=== PATIENT | male | born 1955 | race Caucasian/White ===

== ENCOUNTER 2017-04-06 12:18 | Inpatient (IN) | payer MEDICAID ==
[~2017-04-06] VITALS: Ht 177.8 cm; Wt 74.4 kg
[2017-04-06] VITALS (13 sets, daily range): BP systolic 144–188; BP diastolic 65–82
[~2017-04-06 12:18] MED LIST: NS Irrig 1000ml ONE; Sterile Water Irrig 1000ml IRRIG ONE
[2017-04-06] MEDS ORDERED: Vancomycin 1.5gm/D5W 250ml 250 ML IVPB ONE (13:30)
--- NOTE | 2017-04-06 13:31 | Emergency Room Report ---
History of Present Illness General Chief Complaint: Lower Extremity Injury Source: Patient (STAN BERNSTEIN M.D.) Present Illness HPI 61-year-old male, walk-in with "a few months" of worsening pain smell from left foot after accidentally dropping a motor on left shoe. Patient been caring for foot with home remedies, has not seen primary care doctor for this. Patient went to urgent care clinic and was sent promptly to the ER today. Denies history of diabetes, possibly has history of high blood pressure. Denies fevers chills or feeling of unwell Per son patient has been walking with a limp (STAN BERNSTEIN M.D.) Allergies: Coded Allergies: No Known Allergies (Unverified , 04/06/17) Patient History Past Medical History: HTN Past Surgical History: none Pertinent Family History: none Social History: Denies: smoking, alcohol use, drug use Immunizations: UTD Reviewed Nursing Documentation: PMH: Agreed, PSxH: Agreed (STAN BERNSTEIN M.D.) Nursing Documentation-PMH Past Medical History: No History, Except For Hx Hypertension: Yes (STAN BERNSTEIN M.D.) Review of Systems All Other Systems: negative except mentioned in HPI (STAN BERNSTEIN M.D.) Physical Exam Vital Signs Date Time Temp Pulse Resp B/P (MAP) Pulse Ox O2 Delivery O2 Flow Rate FiO2 04/06/17 12:40 98.4 120 18 182/82 98 Room Air Sp02 EP Interpretation: reviewed, normal General Appearance: normal inspection, well appearing, no apparent distress, alert, GCS 15, non-toxic Head: normocephalic, atraumatic Eyes: bilateral eye PERRL, bilateral eye EOMI ENT: normal ENT inspection, hearing grossly normal, normal voice Neck: normal inspection, full range of motion, supple, no bony tend Respiratory: normal inspection, lungs clear, normal breath sounds, no respiratory distress, no retraction, no wheezing Cardiovascular #1: regular rate, rhythm, no edema Gastrointestinal: normal inspection, normal bowel sounds, non tender, soft, no guarding, no hernia Genitourinary: no CVA tenderness Musculoskeletal: normal inspection, back normal, normal range of motion, Binh' s Sign negative, other - Left foot: Large area of black necrotic-looking tissue to bottom of his left big toe and also including bottom of left . Decreased sensation to bottom of discoloration of foot. Discoloration of nails. 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 nml as tested, speech normal Psychiatric: normal inspection, judgement/insight normal, mood/affect normal Skin: normal inspection, normal color, no rash (STAN BERNSTEIN M.D.) Medical Decision Making Diagnostic Impression: Primary Impression: Ulcer of foot with necrosis of muscle Additional Impressions: Osteomyelitis of left foot Necrotizing fasciitis ER Course Necrotic-looking infection of left foot, possible osteomyelitis, possible necrotizing fasciitis Broad-spectrum antibiotics including Unasyn and vancomycin Blood cultures pending Needs admission for IV antibiotics, possible podiatry and/or general surgery consult for possible debridement or amputation for worst-case scenario signed out to Dr. Hannah 2 PM to followup labs, imaging endorsement for admission (STAN BERNSTEIN M.D.) ER Course received signout - 61-year-old male, trauma few months ago, 2-3 months of necrotic left toe and foul-smelling odor. Discussed with radiologist, concern for osteomyelitis as well as necrotizing fasciitis Patient received Unasyn and vancomycin Clindamycin added Discussed with surgery who is aware of patient Dr Zabala evaluated patient will be admitted to OR (Stephanie Hannah M.D.) Last Vital Signs Date Time Temp Pulse Resp B/P (MAP) Pulse Ox O2 Delivery O2 Flow Rate FiO2 04/06/17 12:40 98.4 120 18 182/82 98 Room Air Status: improved (STAN BERNSTEIN M.D.) Disposition: ADMITTED INPATIENT STAN BERNSTEIN M.D. Apr 06, 2017 13:31 Stephanie Hannah M.D. Apr 06, 2017 14:52
[2017-04-06] MEDS ORDERED: Unasyn 3gm Inj ONE ×2 (13:44→13:57)
[2017-04-06] MEDS: Ampicillin/Sulbactam Sod 3 GM in NS 110 ML IV SCH ×2 (14:06→19:30)
[2017-04-06 14:21] LABS: BASOPHILS % (AUTO) 1.2 % (0.0-2.0); EOSINOPHILS % (AUTO) 0.3 % (0.0-3.0); LYMPHOCYTES % (AUTO) 14.5 % (20.0-45.0); MEAN CORPUSCULAR HEMOGLOBIN 27.8 PG (27.0-31.0); MEAN CORPUSCULAR HGB CONC 32.3 G/DL (32.0-36.0); MEAN CORPUSCULAR VOLUME 86 FL (80-99); MEAN PLATELET VOLUME 6.7 FL (6.5-10.1); MONOCYTES % (AUTO) 6.1 % (1.0-10.0); PLATELET COUNT 496 K/UL (150-450); RED BLOOD COUNT 4.57 M/UL (4.70-6.10); WHITE BLOOD COUNT 16.1 K/UL (4.8-10.8)
[2017-04-06 14:25] LABS: PROTHROMBIN TIME 10.5 SEC (9.30-11.50)
[2017-04-06 14:36] LABS: ANION GAP 12 mmol/L (5-15); CALCIUM 9.4 MG/DL (8.5-10.1); CARBON DIOXIDE 26 MMOL/L (21-32); CHLORIDE 94 MMOL/L (98-107); CREATININE 0.9 MG/DL (0.55-1.30); GLOMERULAR FILTRATION RATE > 60 mL/min (>60); POTASSIUM 4.4 MMOL/L (3.5-5.1); SODIUM 131 MMOL/L (136-145)
[2017-04-06] MEDS ORDERED: Clindamycin 600mg 50 ML IVPB ONE (14:45)
[2017-04-06 14:49] LABS: ALANINE AMINOTRANSFERASE 26 U/L (12-78); ALBUMIN/GLOBULIN RATIO 0.4 (1.0-2.7); ASPARTATE AMINO TRANSFERASE 20 U/L (15-37); CKMB 1.2 NG/ML (0.0-3.6); TOTAL PROTEIN 8.1 G/DL (6.4-8.2)
--- NOTE | 2017-04-06 15:59 | Pre-Procedure Note/Attestation ---
Pre-Procedure Note/Attestation Complete Prior to Procedure Planned Procedure: left Procedure Narrative: left foot debridement, possible ray amputation, possible mid foot amputation Attestation I attest that I discussed the nature of the procedure; its benefits; risks and complications; and alternatives (and the risks and benefits of such alternatives ), prior to the procedure, with the patient (or the patient's legal field representative/health education). I attest that, if there was a reasonable possibility of needing a blood transfusion, the patient (or the patient's legal field representative/health education) was given the [facility] standardized written summary, pursuant to the Emile Analy Blood Safety Act ([place] Health and Safety Code # 1645, as amended). I attest that I re-evaluated the patient just prior to the surgery and that there has been no change in the patient's H&P, except as documented below: Virgilio Zabala Apr 06, 2017 15:59
--- NOTE | 2017-04-06 16:11 | Consultation ---
History of Present Illness General Date patient seen: Apr 06, 2017 Chief Complaint: Lower Extremity Injury Present Illness HPI 61 year old male presented to ED with worsening left foot pain with difficulty ambulating. As per patient, he had an injury 2 months ago at work where an engine fell onto his foot. Since that injury he has had pain in left foot and few weeks ago noted worsening area of necrosis. He thought wound would improve and has gone without medical evaluation since that time. In the last two week he has noted worsening pain, foul odor, discharge, and drainage from areas of wounds in left foot. As he began to have difficulty ambulating and pain worsened he decided to come to ED today for evaluation. Denies sensation in parts of the left foot but states there is a deep pain. Labs performed and demonstrated leukocytosis 16k, lactate 1.4. Patient low grade fevers and tachycardic. On exam demonstrates wet gangrene of left distal foot including great toe with purulent discharge and extensive necrosis. Allergies: Coded Allergies: No Known Allergies (Unverified , 04/06/17) Patient History History Provided By: Patient Healthcare decision maker Resuscitation status Advanced Directive on File Past Medical/Surgical History Past Medical/Surgical History: (1) Wet gangrene (2) Necrotizing fasciitis (3) Osteomyelitis of left foot (4) Ulcer of foot with necrosis of muscle Review of Systems Constitutional: Denies: no symptoms, see HPI, chills, sweats, fever, malaise, weakness, other Eye: Denies: no symptoms, see HPI, eye pain, blurred vision, tearing, double vision, nose pain, nose congestion, acuity changes, discharge, other ENT: Denies: no symptoms, see HPI, ear pain, ear discharge, nose pain, nose congestion, throat pain, throat swelling, mouth pain, hearing loss, nasal discharge, other Respiratory: Denies: no symptoms, see HPI, cough, orthopnea, shortness of breath, stridor, wheezing, RIVERA, sputum, other Cardiovascular: Denies: no symptoms, see HPI, chest pain, edema, palpitations, syncope, PND, other Gastrointestinal: Denies: no symptoms, see HPI, abdominal pain, constipation, diarrhea, nausea, vomiting, melena, hematemesis, other Genitourinary: Denies: no symptoms, see HPI, discharge, dysuria, frequency, hematuria, pain, retention, incontinence, urgency, vag bleed/dc, other Musculoskeletal: Denies: no symptoms, see HPI, back pain, gout, joint pain, joint swelling, muscle pain, muscle stiffness, other Skin: Denies: no symptoms, see HPI, rash, change in color, change in hair/nails , dryness, lesions, other Psychiatric: Denies: no symptoms, see HPI, prior hx, anxiety, depressed feelings, emotional problems, SI, HI, hallucinations, other Neurological: Denies: no symptoms, see HPI, headache, numbness, paresthesia, seizure, tingling, tremors, focal weakness, syncope, dizziness, other Endocrine: Denies: no symptoms, see HPI, excessive sweating, flushing, intolerance to temperature, increased thirst, increased urine, unexplained weight loss, other Hematologic/Lymphatic: Denies: no symptoms, see HPI, anemia, blood clots, easy bleeding, easy bruising, swollen glands, diathesis, other All Other Systems: negative except mentioned in HPI Physical Exam General Appearance: WD/WN, no apparent distress, alert Lines, tubes and drains: peripheral HEENT: mucous membranes moist, PERRL Neck: normal inspection Respiratory/Chest: lungs clear, normal breath sounds, no respiratory distress, no accessory muscle use Cardiovascular/Chest: normal peripheral pulses, normal rate, regular rhythm Abdomen: normal bowel sounds, non tender, soft, no organomegaly, no mass Extremities: other - left distal foot with extensive wet gangene, necrotic great toe necrosis, purulent discharge, erthema, edema, tender proximally. good pulses on right lower extremity and proximally on left lower extremity. 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 grossly normal, alert, oriented x 3, responsive Last 24 Hour Vital Signs Date Time Temp Pulse Resp B/P (MAP) Pulse Ox O2 Delivery O2 Flow Rate FiO2 04/06/17 15:00 91 19 148/65 97 Room Air 04/06/17 12:40 98.4 120 18 182/82 98 Room Air Intake and Output 04/06/17 04/07/17 19:00 07:00 Intake Total 110 ml Balance 110 ml Intake Oral 0 ml IV Total 110 ml Laboratory Tests Test 04/06/17 13:55 White Blood Count 16.1 K/UL (4.8-10.8) H Red Blood Count 4.57 M/UL (4.70-6.10) L Hemoglobin 12.7 G/DL (14.2-18.0) L Hematocrit 39.3 % (42.0-52.0) L Mean Corpuscular Volume 86 FL (80-99) Mean Corpuscular Hemoglobin 27.8 PG (27.0-31.0) Mean Corpuscular Hemoglobin Concent 32.3 G/DL (32.0-36.0) Red Cell Distribution Width 12.0 % (11.6-14.8) Platelet Count 496 K/UL (150-450) H Mean Platelet Volume 6.7 FL (6.5-10.1) Neutrophils (%) (Auto) 78.0 % (45.0-75.0) H Lymphocytes (%) (Auto) 14.5 % (20.0-45.0) L Monocytes (%) (Auto) 6.1 % (1.0-10.0) Eosinophils (%) (Auto) 0.3 % (0.0-3.0) Basophils (%) (Auto) 1.2 % (0.0-2.0) Prothrombin Time 10.5 SEC (9.30-11.50) Prothromb Time International Ratio 1.0 (0.9-1.1) Sodium Level 131 MMOL/L (136-145) L Potassium Level 4.4 MMOL/L (3.5-5.1) Chloride Level 94 MMOL/L (98-107) L Carbon Dioxide Level 26 MMOL/L (21-32) Anion Gap 12 mmol/L (5-15) Blood Urea Nitrogen 16 mg/dL (7-18) Creatinine 0.9 MG/DL (0.55-1.30) Estimat Glomerular Filtration Rate > 60 mL/min (>60) Glucose Level 360 MG/DL (74-106) H Lactic Acid Level 1.30 mmol/L (0.66-2.22) Calcium Level 9.4 MG/DL (8.5-10.1) Total Bilirubin 0.3 MG/DL (0.2-1.0) Aspartate Amino Transf (AST/SGOT) 20 U/L (15-37) Alanine Aminotransferase (ALT/SGPT) 26 U/L (12-78) Alkaline Phosphatase 96 U/L (46-116) Creatine Kinase MB 1.2 NG/ML (0.0-3.6) Total Protein 8.1 G/DL (6.4-8.2) Albumin 2.2 G/DL (3.4-5.0) L Globulin 5.9 g/dL Albumin/Globulin Ratio 0.4 (1.0-2.7) L Height (Feet): 5 Height (Inches): 6.00 Weight (Pounds): 165 Medications Current Medications Medications (Trade) Dose Ordered Sig/Jorge Route PRN Reason Start Time Stop Time Status Last Admin Dose Admin Ampicillin Sodium/ Sulbactam Sodium 3 gm/Sodium Chloride 110 ml @ 220 mls/hr Q6H IV 04/06/17 13:30 04/07/17 13:29 04/06/17 14:06 Assessment/Plan Problem List: (1) Wet gangrene Assessment & Plan: 61M with wet gangrene of left distal foot. On exam he has extensive wet gangrene including first ray, second ray and potentially remaining rays. there is large area of necrosis with wet gangrene and purulent drainage. Febrile, tachycardic, leukocytosis, exam as above. Given this he needs urgent debridement of wet gangrene as he is at high risk for worsening sepsis without proper source control. Discussed above with patient. Spoke with patients daughter who is a surgeon and son as well. will proceed with debridement of left foot which will include amputation of great toe, possibly remaining toes as well depending on how extensive infection. May possibly require mid foot amputation. Will leave wounds open with dressings until ready for closure at another time. will possibly need repeat operative intervention is infection progresses after todays debridement. NPO IV fluids IV Abx to OR today Consent obtained. ICD Codes: I96 - Gangrene, not elsewhere classified SNOMED: [id number], [id number] Virgilio Zabala Apr 06, 2017 16:11
[2017-04-06] MEDS ORDERED: Propofol 200mg/20ml IV ONE (17:00)
[2017-04-06] MEDS ORDERED: fentaNYL 100 mcg/2 mL IV ONE (17:00)
[2017-04-06] MEDS ORDERED: Midazolam 2mg/2ml Inj ONE (17:00)
[2017-04-06] MEDS ORDERED: LR 1000ml ONE (17:00)
[2017-04-06] MEDS ORDERED: Lidocaine 1% MPF 10mg/ml 5ml ONE (17:00)
[2017-04-06] MEDS ORDERED: Dexamethasone 4mg/ml vial ONE (17:00)
--- NOTE | 2017-04-06 17:12 | Diagnostic Imaging Report ---
Indications: Left foot Technique: 3 views of the foot Comparison: None Findings: There is extensive destruction of the first proximal phalanx. There is also extensive destruction with pathologic fracture of the first distal phalanx. There is some rarefaction of the head of the first metatarsal. There is absence of the distal aspect of the second distal phalanx, with also absence of the findings soft tissue. Considerable gas is seen in the plantar surface of the soft tissues adjacent to the first metatarsophalangeal joint and proximal phalanx. No other acute fractures. No dislocations. No other osseous erosions. Joint spaces are preserved. There is hallux valgus and metatarsus adductus Impression: Extensive destruction of the first proximal and distal phalanx. Findings are consistent with severe osteomyelitis Rarefaction of the head of the first metatarsal, could also indicate osteomyelitis changes Extensive gas within the plantar soft tissues of the great toe, consistent with infection by gas-forming organism. Absence of the distal aspect of the second distal phalanx, could indicate prior amputation or destruction secondary osteomyelitis. Correlate with clinical history and findings Other findings as noted above Findings previously discussed by phone with Dr. Hannah in the emergency room
[2017-04-06] MEDS ORDERED: LR 1000ml 1,000 ML IVLG SCH (17:20)
--- NOTE | 2017-04-06 17:20 | Anethesia Preoperative Eval ---
Anesthesia Pre-op PMH/ROS General Date of Evaluation: Apr 06, 2017 Time of Evaluation: 16:41 Anesthesiologist: Jessica ASA Score: ASA 3 - Emergency Mallampati Score Class I : Soft palate, uvula, fauces, pillars visible Class II: Soft palate, uvula, fauces visible Class III: Soft palate, base of uvula visible Class IV: Only hard plate visible Mallampati Classification: Class II Surgeon: Vj Diagnosis: Necrosis L Foot Surgical Procedure: Amputation L Great Toe Anesthesia History: none Social History: current smoker Family History: no anesthesia problems Allergies: Coded Allergies: No Known Allergies (Unverified , 04/06/17) Medications: see eMAR Past Medical History Cardiovascular: Reports: HTN Hematology/Immune: Reports: anemia Musculoskeletal/Integumentary: Reports: other - Exremly poor dentition Anesthesia Pre-op Phys. Exam Physician Exam Last Vital Signs Date Time Temp Pulse Resp B/P (MAP) Pulse Ox O2 Delivery O2 Flow Rate FiO2 04/06/17 16:58 98.7 94 12 167/75 98 Room Air Constitutional: NAD Neurologic: CN 2-12 intact Cardiovascular: RRR Respiratory: CTA Gastrointestinal: S/NT/ND Airway Exam Mallampati Score: Class II MO: limited ROM: limited Teeth: missing Anesthesia Pre-op A/P Labs Hematology Test 04/06/17 13:55 White Blood Count 16.1 K/UL (4.8-10.8) H Red Blood Count 4.57 M/UL (4.70-6.10) L Hemoglobin 12.7 G/DL (14.2-18.0) L Hematocrit 39.3 % (42.0-52.0) L Mean Corpuscular Volume 86 FL (80-99) Mean Corpuscular Hemoglobin 27.8 PG (27.0-31.0) Mean Corpuscular Hemoglobin Concent 32.3 G/DL (32.0-36.0) Red Cell Distribution Width 12.0 % (11.6-14.8) Platelet Count 496 K/UL (150-450) H Mean Platelet Volume 6.7 FL (6.5-10.1) Neutrophils (%) (Auto) 78.0 % (45.0-75.0) H Lymphocytes (%) (Auto) 14.5 % (20.0-45.0) L Monocytes (%) (Auto) 6.1 % (1.0-10.0) Eosinophils (%) (Auto) 0.3 % (0.0-3.0) Basophils (%) (Auto) 1.2 % (0.0-2.0) Coagulation Test 04/06/17 13:55 Prothrombin Time 10.5 SEC (9.30-11.50) Prothromb Time International Ratio 1.0 (0.9-1.1) Chemistry Test 04/06/17 13:55 Sodium Level 131 MMOL/L (136-145) L Potassium Level 4.4 MMOL/L (3.5-5.1) Chloride Level 94 MMOL/L (98-107) L Carbon Dioxide Level 26 MMOL/L (21-32) Anion Gap 12 mmol/L (5-15) Blood Urea Nitrogen 16 mg/dL (7-18) Creatinine 0.9 MG/DL (0.55-1.30) Estimat Glomerular Filtration Rate > 60 mL/min (>60) Glucose Level 360 MG/DL (74-106) H Lactic Acid Level 1.30 mmol/L (0.66-2.22) Calcium Level 9.4 MG/DL (8.5-10.1) Total Bilirubin 0.3 MG/DL (0.2-1.0) Aspartate Amino Transf (AST/SGOT) 20 U/L (15-37) Alanine Aminotransferase (ALT/SGPT) 26 U/L (12-78) Alkaline Phosphatase 96 U/L (46-116) Creatine Kinase MB 1.2 NG/ML (0.0-3.6) Total Protein 8.1 G/DL (6.4-8.2) Albumin 2.2 G/DL (3.4-5.0) L Globulin 5.9 g/dL Albumin/Globulin Ratio 0.4 (1.0-2.7) L Risk Assessment & Plan Assessment: ASA 3E Plan: GA, BIS, GlideScope Pre-Antibiotics Drug: Given in ER Given Within 1 Hr of Incision: Yes Fabricio Lopez MD Apr 06, 2017 17:20
--- NOTE | 2017-04-06 17:28 | Immediate Post-Op Evaluation ---
Immediate Post-Op Evalulation Immediate Post-Op Evalulation Procedure: Amputation L Great Toe and L 2nd Toe Date of Evaluation: Apr 06, 2017 Time of Evaluation: 18:20 IV Fluids: 600 LR Blood Products: 0 Estimated Blood Loss: 20 Urinary Output: 0 Blood Pressure Systolic: 160 Blood Pressure Diastolic: 79 Pulse Rate: 99 Respiratory Rate: 16 O2 Sat by Pulse Oximetry: 100 Temperature (Fahrenheit): 98.4 Pain Score (1-10): 3 Nausea: No Vomiting: No Complications 0 Patient Status: awake, reacts, patent, none Hydration Status: adequate Drug: Given in ER Given Within 1 Hr of Incision: Yes Fabricio Lopez MD Apr 06, 2017 17:28
[2017-04-06] MEDS ORDERED: fentaNYL 100 mcg/2 mL IV PRN (17:30)
[2017-04-06] MEDS ORDERED: oxyCODONE HCL/Acetaminophen 5/325mg ORAL PRN (17:30)
[2017-04-06] MEDS ORDERED: Ketorolac 30mg Inj IV PRN ×2 (17:30)
[2017-04-06] MEDS ORDERED: DiphenhydrAMINE 50mg/ml Inj IVP PRN ×2 (17:30→18:15)
[2017-04-06] MEDS ORDERED: Midazolam 2mg/2ml Inj IVP PRN (17:30)
[2017-04-06] MEDS ORDERED: Metoclopramide 10mg/2ml Inj IVP PRN ×2 (17:30→18:15)
[2017-04-06] MEDS ORDERED: Norco 5mg/325mg tab ORAL PRN ×2 (17:30→18:15)
[2017-04-06] MEDS ORDERED: Norco 7.5mg/325mg tab ORAL PRN (17:30)
[2017-04-06] MEDS ORDERED: Atropine Inj 1mg/10ml Syr IV PRN (17:30)
[2017-04-06] MEDS ORDERED: LORazepam Inj 2mg/ml 1ml IV PRN (17:30)
[2017-04-06] MEDS ORDERED: Hydromorphone 0.5mg/0.5ml inj IVP PRN ×2 (17:30→18:15)
--- NOTE | 2017-04-06 18:09 | Brief Operative Note ---
Immediate Post Operative Note Operative Note Pre-op Diagnosis: wet gangrene left foot Procedure: debridement of left foot with amputation of first and second rays Post-op Diagnosis: same as pre-op Surgeon: Vj VILLAFANA Anesthesiologist: Alonzo Anesthesia: general Specimen: yes - left foot first and second ray amputation with infected tissues Complications: none Condition: stable Fluids: see records Estimated Blood Loss: minimal Drains: none Implant(s) used?: No Virgilio Zabala Apr 06, 2017 18:09
[2017-04-06] MEDS ORDERED: Milk of Magnesia 30ml Ud ORAL PRN (18:15)
[2017-04-06] MEDS ORDERED: Sennosides 8.6mg ORAL PRN (18:15)
[2017-04-06] MEDS: D5 1/2NS w/KCl 20mEq 1,000 ML IV SCH (21:13)
[2017-04-06] MEDS: Zoysn 3.37gm in D5W 55ml IVPB SCH (21:13)
[2017-04-06] MEDS: HYDROmorphone 1mg/ml Carpuject IVP PRN (21:14)
[2017-04-07] VITALS: BP 129/68
[2017-04-07] MEDS ORDERED: NKM (00:52)
[2017-04-07 04:42] VITALS: BP 146/85
[2017-04-07] MEDS: Zoysn 3.37gm in D5W 55ml IVPB SCH ×3 (05:51→21:25)
[2017-04-07] MEDS: D5 1/2NS w/KCl 20mEq 1,000 ML IV SCH (05:51)
--- NOTE | 2017-04-07 06:00 | Operative Note - Dictated ---
DATE OF OPERATION: 04/06/2017 PREOPERATIVE DIAGNOSIS: Wet gangrene of the left foot with extensive necrosis of the first and second toes with possible necrotizing fasciitis. POSTOPERATIVE DIAGNOSIS: Wet gangrene of the left foot with extensive necrosis of the first and second toes with necrotizing fasciitis. OPERATION PERFORMED: Debridement of left foot with amputation of first and second toes. ATTENDING SURGEON: Virgilio Zabala M.D. MARKER SHIPMENTS: None. ANESTHESIOLOGIST: Fabricio Lopez M.D. ANESTHESIA: General RECONNAISSANCE MAN. ESTIMATED BLOOD LOSS: Minimal. COMPLICATIONS: None. IV FLUIDS: Please see anesthesia records. WOUND CLASSIFICATION: Class 3-4. DRAINS: None. SPECIMENS: Left foot first and second ray amputation and infected devitalized tissues. COUNTS: Sponge and needle count correct x2. SIGNIFICANT OPERATIVE FINDINGS: 1. Extensive devitalization of first and second toes from the distal metacarpal to the phalanges. 2. Extensive devitalized tissue with extension of infection through the plantar fascia towards the heel. 3. Midfoot amputation of the first and second toes and debridement of necrotic tissue. 4. Open wound with dressings. INDICATION FOR PROCEDURE: This is a 61-year-old male, who presents to the emergency department complaining of worsening left lower extremity pain and difficulty with ambulation. The patient states that about two months ago, he dropped a car engine while working onto his left foot. Over the subsequent weeks, he has developed worsening pain, odor, and infection in the left foot. In the past 1 to 2 weeks, this significantly worsened with foul odor, purulent drainage, and increasing pain. The patient decided to come to the emergency department for evaluation. In the ED, he was noted to have extensive necrosis of the first and second toes and the distal aspect of the left foot. Low-grade fevers, leukocytosis 16,000, and plain films demonstrating gas in the underlying tissues in the lower extremity as well as extensive osteomyelitis of the first and second toes. When seen, wound was evaluated and there was white gangrene with significant amount of purulent drainage, foul odor, and visible necrosis of the subcutaneous tissues and surrounding tissues with area of white gangrene. There was a mild crepitus in the foot, which is very concerning for a component of necrotizing fasciitis, which was identified. Extensive debridement including possible amputation of toes as well as possible midfoot amputation was discussed with the patient and patient's family in detail at bedside. Once risks, benefits, and alternatives were reviewed in detail, a decision was made to proceed to the operating room. Surgery was indicated. Consent was signed. OPERATIVE NOTE: The patient was taken to the operating room and placed on the operating table in supine position. Bilateral arms out. All bony prominences well padded with gel pads. Preoperative time-out was taken identifying the patient, procedure, operative site, and surgical staff. General anesthesia was induced. The patient was intubated. The left lower extremity was prepped and draped circumferentially in the standard surgical fashion. We began by removing the devitalized tissues and evacuating purulent fluid. Once this was complete, we were able to identify the first great toe, which had extensive necrosis of the surrounding tissues as well down to the bone. A mid phalangeal amputation was performed of the first great toe. Following this, the second ray was identified and evaluated and noted to have extensive devitalization of the distal phalanges and required a mid metatarsal amputation as well. Once this was completed, attention was turned to the surrounding tissues and all devitalized and necrotic and infected tissues were debrided extending from the most medial aspect of the distal foot to the midfoot. The plantar aspect of the foot had a tracking of infection down towards the heel. This was opened with a fresh blade and tracked down. All areas of devitalized tissue were debrided. Once this was complete, hemostasis was achieved with electrocautery and the remainder of the rays were evaluated and noted to be otherwise healthy. Functionally, a significant amount of tissue was excised as well as venous drainage in tendons, which were infected, necrotic, or nonviable. This was discussed with the patient prior, but given the tissues were healthy and the remaining toes were currently at this time healthy, decision was made to leave as much viable tissue as possible with re-evaluation once the patient's health improves and source control has been obtained with likelihood of second planned operation for closure, further debridement or further amputation. At this time, all remaining tissues were noted to be otherwise healthy, no areas of active infection were noted. The wound was then irrigated with copious amounts of warm normal saline. Following this, iodine packing was inserted followed by dressings. At this time, we began the conclusion of our procedure. The patient tolerated the procedure well, was extubated, and taken to the postanesthesia care unit in stable condition. Virgilio Zabala M.D. DR: EVELYN JOB#: [id number] CC: [email or web address]
[2017-04-07 07:22] LABS: BASOPHILS % (AUTO) 0.4 % (0.0-2.0); EOSINOPHILS % (AUTO) 0.1 % (0.0-3.0); LYMPHOCYTES % (AUTO) 19.2 % (20.0-45.0); MEAN CORPUSCULAR HEMOGLOBIN 28.8 PG (27.0-31.0); MEAN CORPUSCULAR HGB CONC 33.5 G/DL (32.0-36.0); MEAN CORPUSCULAR VOLUME 86 FL (80-99); MEAN PLATELET VOLUME 6.6 FL (6.5-10.1); MONOCYTES % (AUTO) 7.2 % (1.0-10.0); NEUTROPHILS % (AUTO) 73.1 % (45.0-75.0); PLATELET COUNT 479 K/UL (150-450); RED BLOOD COUNT 4.14 M/UL (4.70-6.10); RED CELL DISTRIBUTION WIDTH 12.2 % (11.6-14.8)
[2017-04-07 07:42] LABS: ANION GAP 11 mmol/L (5-15); CALCIUM 8.8 MG/DL (8.5-10.1); CARBON DIOXIDE 23 MMOL/L (21-32); CHLORIDE 97 MMOL/L (98-107); CREATININE 0.8 MG/DL (0.55-1.30); GLOMERULAR FILTRATION RATE > 60 mL/min (>60); MAGNESIUM 1.8 MG/DL (1.8-2.4); PHOSPHORUS 3.8 MG/DL (2.5-4.9); POTASSIUM 4.5 MMOL/L (3.5-5.1); SODIUM 131 MMOL/L (136-145)
[2017-04-07] MEDS: Docusate 100mg cap ORAL SCH ×2 (08:16→16:46)
[2017-04-07] MEDS: Enoxaparin 40mg Inj SUBQ SCH (08:17)
[2017-04-07] MEDS: HYDROmorphone 1mg/ml Carpuject IVP PRN ×3 (08:22→21:26)
[2017-04-07 08:37] VITALS: BP 147/68
--- NOTE | 2017-04-07 10:31 | General Progress Note ---
Progress Note Progress Note Surgery: doing very well since surgery. no n/v/f/c. pain from foot but controlled with pain meds. tolerating diet. ready to ambulate. Afebrile, HD stable, VSS, leukocytosis improved 13k today. labs okay. dressings removed and wound checked. significantly improved without any drainage today. no areas of active infection noted. seems that debridement was successful and fortunately will not require another debridement from what I can see today. Some areas of skin and tissue may require debridement depending on blood supply but will declare themselves over the next few days. as for now no further debridement necessary. new dressings applied. blood sugar very high >370. no history but DM but possible given minimal medical care over the past years. -Start insulin sliding scale -Endocrine consult -Diet as tolerated -Ambulate as tolerated. no restrictions. okay for walker if necessary -physical therapy consult -continue IV Abx -AM labs Virgilio Zabala Apr 07, 2017 10:31
--- NOTE | 2017-04-07 10:37 | 48 Hour Post Anesthesia Eval ---
Post Anesthesia Evaluation Procedure: Amputation L Great Toe and L 2nd Toe Date of Evaluation: Apr 07, 2017 Time of Evaluation: 10:36 Blood Pressure Systolic: 134 0: 56 Pulse Rate: 74 Respiratory Rate: 20 Temperature (Fahrenheit): 97.6 O2 Sat by Pulse Oximetry: 98 Airway: patent Nausea: No Vomiting: No Pain Intensity: 3 Hydration Status: adequate Cardiopulmonary Status: stable Mental Status/LOC: patient returned to baseline Follow-up Care/Observations: n/a Post-Anesthesia Complications: none Follow-up care needed: N/A AFTAB AHUJA M.D. Apr 07, 2017 10:37
[2017-04-07] MEDS ORDERED: NovoLOG Insulin Flexpen SUBQ SCH ×2 (11:30)
[2017-04-07 11:46] VITALS: BP 148/79
[2017-04-07] MEDS: NovoLOG Insulin Flexpen SUBQ SCH ×5 (12:00→21:27)
[2017-04-07 15:47] VITALS: BP 132/67
[2017-04-07] MEDS ORDERED: Tubing IV Secondary IV ONE (16:35)
--- NOTE | 2017-04-07 17:45 | History and Physical Report ---
DATE OF ADMISSION: 04/06/2017 CHIEF COMPLAINT: Status post extensive debridement of left foot due to gangrene. HISTORY OF PRESENT ILLNESS: This is a 61-year-old male, who presented to the ER with left foot gangrene. The patient underwent extensive debridement by Dr. Virgilio Zabala yesterday for white gangrene. I am asked to attend to this patient for his medical problems. In the interim, it was found that the patient has unknown diabetes. Essentially, the patient was probably neglecting himself and getting very poor or no medical care. PAST MEDICAL HISTORY: Essentially unknown except probably the patient had neglected diabetes and hypertension. MEDICATIONS: None. ALLERGIES: No known allergies. SOCIAL HISTORY: The patient lives at home. HABITS: He is a nonsmoker and nondrinker. There is no history of illicit drug abuse. FAMILY HISTORY: Unremarkable. REVIEW OF SYSTEMS: HEENT: Hearing and eyesight are normal. ENDOCRINE: The patient denies history of diabetes. RESPIRATORY: Denies shortness of breath, cough, or hemoptysis. CARDIOVASCULAR: He denies chest pain or palpitations. GASTROINTESTINAL: No history of hematochezia, melena, hematemesis, diarrhea, or constipation. GENITOURINARY: He denies dysuria, frequency, urgency, or hematuria. NEUROLOGIC: He denies stroke or syncope. He does have history of decreased sensation of his bilateral feet and hands. PHYSICAL EXAMINATION: GENERAL: This is an elderly male, who is in no acute distress. VITAL SIGNS: Blood pressure 147/68, pulse 86 and regular, respirations 20, and temperature 97.9 degrees. HEENT: The head is normocephalic and atraumatic. Pupils are equal, round, and reactive to light and accommodation consensually. NECK: Supple. Trachea midline. There was no lymphadenopathy or thyromegaly. LUNGS: Clear to auscultation and percussion. HEART: Regular rate and rhythm without rubs, murmurs, or gallops. ABDOMEN: Soft and nontender. Bowel sounds were active. EXTREMITIES: No clubbing, cyanosis, or edema. He has bilateral deformation of his feet in the pes equinus form. His left foot is dressed. Below the dressing, he has extensive debridement status of left foot. NEUROLOGIC: He is alert and oriented x4. Cranial nerves II through XII intact. LABORATORY AND ANCILLARY DATA: CBC shows white count of 12,000 and hematocrit 35.5. Chemistry, sodium 131, potassium 4.5, and glucose is 386. Magnesium 1.8. EKG, left atrial enlargement with LVH without strain. ASSESSMENT: 1. Advanced diabetic neuropathy. 2. Diabetic feet. 3. Status post gangrene left foot with s/p debridement. 4. Left ventricular hypertrophy with hypertensive cardiovascular disease. 5. Uncontrolled diabetes. 6. Noncompliance. PLAN: 1. Control diabetes. 2. Control blood pressure. 3. Obtain culture results from the left foot. 4. IV antibiotics with targeting according to the culture. 5. 2D Echo r/o Vegetations. 6. ID consult. 7. Needs prolonged rehab. Thank you, Dr. Zabala, for letting me to participate in the care of this patient. Ml Floyd M.D. DR: Nan JOB#: [id number] CC: ÁNGEL
--- NOTE | 2017-04-07 17:52 | Infectious Diseases Prog Note ---
Assessment/Plan Assessment/Plan Full consult dictated: A) 1) left foot 1st and 2nd toe gangrene and infected wound with osteo 2) s/p debridement and amputation 3) gram + bacteremia P) 1) vancomycin and zosyn 2) check blood cultures and wound culture 3) per surgery 4) thank you Subjective Allergies: Coded Allergies: No Known Allergies (Unverified , 04/06/17) Objective Vital Signs Last 24 Hour Vital Signs Date Time Temp Pulse Resp B/P (MAP) Pulse Ox O2 Delivery O2 Flow Rate FiO2 04/07/17 15:47 98.4 76 20 132/67 94 04/07/17 15:16 98.1 04/07/17 11:46 98.1 72 20 148/79 96 Room Air 04/07/17 10:37 74 20 98 04/07/17 08:37 97.9 86 20 147/68 95 04/07/17 04:42 98.0 81 19 146/85 97 04/07/17 04:04 Room Air 04/07/17 00:00 Room Air 04/07/17 00:00 97.9 81 19 129/68 95 Room Air 04/06/17 21:00 97.8 83 18 144/70 96 Room Air 04/06/17 20:00 Room Air 04/06/17 20:00 97.9 84 18 155/72 96 Room Air 04/06/17 19:08 98.0 85 13 151/69 100 Nasal Cannula 3.0 04/06/17 19:00 87 13 153/70 100 Nasal Cannula 3.0 04/06/17 18:50 88 14 156/70 100 Nasal Cannula 3.0 04/06/17 18:40 89 13 159/72 100 Nasal Cannula 3.0 04/06/17 18:30 95 12 161/73 100 Nasal Cannula 3.0 04/06/17 18:27 181/76 04/06/17 18:20 95 12 181/78 100 Nasal Cannula 3.0 04/06/17 18:15 98 13 188/82 100 Simple Mask 6.0 04/06/17 18:13 99 16 100 04/06/17 18:09 98.4 99 14 160/79 100 Simple Mask 6.0 Height (Feet): 5 Height (Inches): 10.00 Weight (Pounds): 164 Microbiology Date/Time Source Procedure Growth Status 04/06/17 13:55 Blood Blood Culture - Preliminary Resulted Laboratory Tests Test 04/07/17 04:55 White Blood Count 12.0 K/UL (4.8-10.8) H Red Blood Count 4.14 M/UL (4.70-6.10) L Hemoglobin 11.9 G/DL (14.2-18.0) L Hematocrit 35.5 % (42.0-52.0) L Mean Corpuscular Volume 86 FL (80-99) Mean Corpuscular Hemoglobin 28.8 PG (27.0-31.0) Mean Corpuscular Hemoglobin Concent 33.5 G/DL (32.0-36.0) Red Cell Distribution Width 12.2 % (11.6-14.8) Platelet Count 479 K/UL (150-450) H Mean Platelet Volume 6.6 FL (6.5-10.1) Neutrophils (%) (Auto) 73.1 % (45.0-75.0) Lymphocytes (%) (Auto) 19.2 % (20.0-45.0) L Monocytes (%) (Auto) 7.2 % (1.0-10.0) Eosinophils (%) (Auto) 0.1 % (0.0-3.0) Basophils (%) (Auto) 0.4 % (0.0-2.0) Sodium Level 131 MMOL/L (136-145) L Potassium Level 4.5 MMOL/L (3.5-5.1) Chloride Level 97 MMOL/L (98-107) L Carbon Dioxide Level 23 MMOL/L (21-32) Anion Gap 11 mmol/L (5-15) Blood Urea Nitrogen 13 mg/dL (7-18) Creatinine 0.8 MG/DL (0.55-1.30) Estimat Glomerular Filtration Rate > 60 mL/min (>60) Glucose Level 386 MG/DL (74-106) H Hemoglobin A1c 12.2 % (4.3-6.0) H Calcium Level 8.8 MG/DL (8.5-10.1) Phosphorus Level 3.8 MG/DL (2.5-4.9) Magnesium Level 1.8 MG/DL (1.8-2.4) Current Medications Medications (Trade) Dose Ordered Sig/Jorge Route PRN Reason Start Time Stop Time Status Last Admin Dose Admin Acetaminophen (Tylenol) 650 mg Q6H PRN ORAL Mild Pain (Pain Scale 1-3) 04/06/17 18:15 05/06/17 18:14 Acetaminophen/ Hydrocodone Bitart ([place] 10/325) 1 ea Q4H PRN ORAL Severe Pain (Pain Scale 7-10) 04/06/17 18:15 04/13/17 18:14 Acetaminophen/ Hydrocodone Bitart ([place] 5/325) 1 tab Q4H PRN ORAL Moderate Pain (Pain Scale 4-6) 04/06/17 18:15 04/13/17 18:14 Al Hydroxide/Mg Hydroxide (Mylanta) 15 ml Q6H PRN ORAL DYSPEPSIA 04/06/17 18:15 05/06/17 18:14 Amlodipine Besylate (Norvasc) 10 mg DAILY ORAL 04/08/17 09:00 05/08/17 08:59 Dextrose (Dextrose 50%) STAT PRN IV Hypoglycemia 04/07/17 11:15 05/07/17 11:14 Diphenhydramine HCl (Benadryl) 12.5 mg Q6H PRN IVP Itching/Pruritis 04/06/17 18:15 05/06/17 18:14 Docusate Sodium (Colace) 100 mg TWICE A DAY ORAL 04/07/17 09:00 05/07/17 08:59 04/07/17 16:46 Enoxaparin Sodium (Lovenox) 40 mg DAILY SUBQ 04/07/17 09:00 05/07/17 08:59 04/07/17 08:17 Hydromorphone HCl (Dilaudid) 0.5 mg Q3H PRN IVP Pain Score 1-3 04/06/17 18:15 04/13/17 18:14 Hydromorphone HCl (Dilaudid) 1 mg Q3H PRN IVP pain score 4-6 04/06/17 18:15 04/13/17 18:14 04/07/17 14:46 Hydromorphone HCl (Dilaudid) 2 mg Q3H PRN IVP pain score 7-10 04/06/17 18:15 04/13/17 18:14 Insulin Aspart (NovoLOG) BEFORE MEALS AND HS SUBQ 04/07/17 11:30 05/07/17 11:29 04/07/17 16:44 Insulin Aspart (NovoLOG) 3 units NOVOTIAC SUBQ 04/07/17 11:50 05/07/17 11:49 04/07/17 16:43 Insulin Detemir (Levemir) 20 units BEDTIME SUBQ 04/07/17 21:00 05/07/17 20:59 Magnesium Hydroxide (Mom) 30 ml BIDPRN PRN ORAL Constipation 04/06/17 18:15 05/06/17 18:14 Metoclopramide HCl (Reglan) 10 mg Q6H PRN IVP Nausea & Vomiting 04/06/17 18:15 05/06/17 18:14 Ondansetron HCl (Zofran) 4 mg Q6H PRN IVP Nausea & Vomiting 04/06/17 18:15 05/06/17 18:14 Piperacillin Sod/ Tazobactam Sod 3.375 gm/Dextrose 55 ml @ 13.75 mls/ hr EVERY 8 HOURS IVPB 04/06/17 21:00 04/11/17 20:59 04/07/17 14:46 Sennosides (Senokot) 8.6 mg BIDPRN PRN ORAL Constipation 2nd line agent 04/06/17 18:15 05/06/17 18:14 CARISA GLOVER Apr 07, 2017 17:52
[2017-04-07] MEDS ORDERED: Vancomycin 1.5 GM/D5W 250ML IVPB ONE (18:30)
[2017-04-07 20:00] VITALS: BP 111/56
[2017-04-07] MEDS: Levemir Flexpen SUBQ SCH (21:28)
[2017-04-08] VITALS: BP 128/66
[2017-04-08 03:46] VITALS: BP 152/74
[2017-04-08] MEDS: Zoysn 3.37gm in D5W 55ml IVPB SCH ×3 (06:01→22:00)
[2017-04-08] MEDS: NovoLOG Insulin Flexpen SUBQ SCH ×7 (06:04→21:44)
[2017-04-08 07:15] LABS: BASOPHILS % (AUTO) 1.1 % (0.0-2.0); EOSINOPHILS % (AUTO) 1.5 % (0.0-3.0); LYMPHOCYTES % (AUTO) 34.5 % (20.0-45.0); MEAN CORPUSCULAR HEMOGLOBIN 28.9 PG (27.0-31.0); MEAN CORPUSCULAR HGB CONC 34.1 G/DL (32.0-36.0); MEAN CORPUSCULAR VOLUME 85 FL (80-99); MEAN PLATELET VOLUME 6.6 FL (6.5-10.1); MONOCYTES % (AUTO) 6.9 % (1.0-10.0); NEUTROPHILS % (AUTO) 55.9 % (45.0-75.0); PLATELET COUNT 485 K/UL (150-450); RED BLOOD COUNT 4.05 M/UL (4.70-6.10); RED CELL DISTRIBUTION WIDTH 12.1 % (11.6-14.8); WHITE BLOOD COUNT 12.6 K/UL (4.8-10.8)
[2017-04-08 07:32] LABS: ALANINE AMINOTRANSFERASE 32 U/L (12-78); ALBUMIN/GLOBULIN RATIO 0.3 (1.0-2.7); AMYLASE 38 U/L (25-115); ANION GAP 10 mmol/L (5-15); ASPARTATE AMINO TRANSFERASE 33 U/L (15-37); CALCIUM 8.8 MG/DL (8.5-10.1); CARBON DIOXIDE 24 MMOL/L (21-32); CHLORIDE 104 MMOL/L (98-107); CREATININE 0.8 MG/DL (0.55-1.30); GLOMERULAR FILTRATION RATE > 60 mL/min (>60); LIPASE 104 U/L (73-393); POTASSIUM 4.2 MMOL/L (3.5-5.1); SODIUM 138 MMOL/L (136-145); TOTAL PROTEIN 7.4 G/DL (6.4-8.2)
[2017-04-08 07:50] LABS: HEMOGLOBIN A1C 12.4 % (4.3-6.0)
--- NOTE | 2017-04-08 09:13 | General Progress Note ---
Assessment/Plan Assessment/Plan Gram Poitive Bacteremia - IV Abx per ID. 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 D. Neuropathy. PVD - check Duplex. Subjective Allergies: Coded Allergies: No Known Allergies (Unverified , 04/06/17) Subjective No new c/o Objective Last 24 Hour Vital Signs Date Time Temp Pulse Resp B/P (MAP) Pulse Ox O2 Delivery O2 Flow Rate FiO2 04/08/17 03:46 97.7 72 20 152/74 97 Room Air 04/08/17 00:00 98.2 70 21 128/66 96 Room Air 04/07/17 20:00 98.1 79 21 111/56 97 Room Air 04/07/17 15:47 98.4 76 20 132/67 94 04/07/17 15:16 98.1 04/07/17 11:46 98.1 72 20 148/79 96 Room Air 04/07/17 10:37 74 20 98 Laboratory Tests 04/08/17 06:10: White Blood Count 12.6H, Red Blood Count 4.05L, Hemoglobin 11.7L, Hematocrit 34.2L, Mean Corpuscular Volume 85, Mean Corpuscular Hemoglobin 28.9, Mean Corpuscular Hemoglobin Concent 34.1, Red Cell Distribution Width 12.1, Platelet Count 485H, Mean Platelet Volume 6.6, Neutrophils (%) (Auto) 55.9, Lymphocytes ( %) (Auto) 34.5, Monocytes (%) (Auto) 6.9, Eosinophils (%) (Auto) 1.5, Basophils (%) (Auto) 1.1, Sodium Level 138, Potassium Level 4.2, Chloride Level 104, Carbon Dioxide Level 24, Anion Gap 10, Blood Urea Nitrogen 14, Creatinine 0.8, Estimat Glomerular Filtration Rate > 60, Glucose Level 152#H, Hemoglobin A1c 12.4H, Calcium Level 8.8, Total Bilirubin 0.3, Aspartate Amino Transf (AST/SGOT ) 33, Alanine Aminotransferase (ALT/SGPT) 32, Alkaline Phosphatase 77, Total Protein 7.4, Albumin 1.9L, Globulin 5.5, Albumin/Globulin Ratio 0.3L, Amylase Level 38, Lipase 104 Height (Feet): 5 Height (Inches): 10.00 Weight (Pounds): 164 Objective Cv RR Lungs CTA Abd SNT. BS + E No CCe. Lt. foot dressed. PHILIPP LORD Apr 08, 2017 09:13
[2017-04-08] MEDS: Enoxaparin 40mg Inj SUBQ SCH (09:28)
[2017-04-08] MEDS: HYDROmorphone 1mg/ml Carpuject IVP PRN ×2 (09:29→14:46)
[2017-04-08] MEDS: Docusate 100mg cap ORAL SCH ×2 (09:29→17:06)
[2017-04-08] MEDS: Vancomycin 1250mg/D5W 250ml IVPB SCH ×2 (09:30→21:45)
[2017-04-08 12:00] VITALS: BP 152/72
--- NOTE | 2017-04-08 15:27 | Cardiology Report ---
APPROVED REPORT EXAM: Two-dimensional and M-mode echocardiogram with Doppler and color Doppler. INDICATION Hypertensive heart dis M-Mode DIMENSIONS IVSd0.7 (0.7-1.1cm)Left Atrium (MM)4.6 (1.6-4.0cm) LVDd4.4 (3.5-5.6cm)Aortic Root3.3 (2.0-3.7cm) PWd1.1 (0.7-1.1cm)Aortic Cusp Exc.1.9 (1.5-2.0cm) IVSs1.6 cm LVDs2.4 (2.5-4.0cm) PWs1.9 cm Normal left ventricular chamber size, systolic function and wall motion. Left ventricular ejection fraction estimated to be 55-60 %. Mild left ventricular hypertrophy by 2D. Small posterior pericardial effusion. Left atrial size at upper limits of normal. Right cardiac chamber sizes are within normal limits. Moderate Focal aortic valve sclerosis with adequate cusp excursion. Mild mitral valve leaflets with normal excursion. Mitral annulus and aortic root calcification. Pulmonic valve not well visualized. Normal tricuspid valve structure. IVC at normal size with slight physiologic collapse. A color flow and spectral Doppler study was performed and revealed: No aortic regurgitation. Trace mitral regurgitation. Mitral diastolic velocities suggest reduced left ventricular relaxation c/w mild LV diastolic dysfunction (Grade I ). Trace tricuspid regurgitation. Tricuspid systolic velocities suggests peak right ventricular systolic pressure of 14 mmHg. No Pulmonic regurgitation present.
--- NOTE | 2017-04-08 15:37 | Infectious Diseases Prog Note ---
Assessment/Plan Assessment/Plan Full consult dictated: A) 1) left foot 1st and 2nd toe gangrene and infected wound with osteo, wc - gram neg/+ 2) s/p debridement and amputation 3) gram + bacteremia, sepsis, leukocytosis and fevers P) 1) vancomycin and zosyn for now 2) check blood cultures and wound culture, check labs 3) per surgery 4) will f/u Subjective Allergies: Coded Allergies: No Known Allergies (Unverified , 04/06/17) Objective Vital Signs Last 24 Hour Vital Signs Date Time Temp Pulse Resp B/P (MAP) Pulse Ox O2 Delivery O2 Flow Rate FiO2 04/08/17 12:00 98.0 85 18 152/72 96 Room Air 04/08/17 09:29 72 152/74 04/08/17 03:46 97.7 72 20 152/74 97 Room Air 04/08/17 00:00 98.2 70 21 128/66 96 Room Air 04/07/17 20:00 98.1 79 21 111/56 97 Room Air 04/07/17 15:47 98.4 76 20 132/67 94 Height (Feet): 5 Height (Inches): 10.00 Weight (Pounds): 164 Microbiology Date/Time Source Procedure Growth Status 04/06/17 14:30 Blood Blood Culture - Preliminary NO GROWTH AFTER 24 HOURS Resulted 04/06/17 13:55 Blood Blood Culture - Preliminary Gram Positive Cocci Resulted 04/06/17 17:49 Bone Gram Stain Pending Resulted 04/06/17 17:49 Bone Surgical Biopsy Culture Pending Resulted 04/06/17 17:49 Aerobic Culture - Preliminary Gram Negative Bacillus 1 Gram Positive Cocci Resulted 04/06/17 17:49 Bone Anaerobic Culture - Preliminary Resulted Laboratory Tests Test 04/08/17 06:10 White Blood Count 12.6 K/UL (4.8-10.8) H Red Blood Count 4.05 M/UL (4.70-6.10) L Hemoglobin 11.7 G/DL (14.2-18.0) L Hematocrit 34.2 % (42.0-52.0) L Mean Corpuscular Volume 85 FL (80-99) Mean Corpuscular Hemoglobin 28.9 PG (27.0-31.0) Mean Corpuscular Hemoglobin Concent 34.1 G/DL (32.0-36.0) Red Cell Distribution Width 12.1 % (11.6-14.8) Platelet Count 485 K/UL (150-450) H Mean Platelet Volume 6.6 FL (6.5-10.1) Neutrophils (%) (Auto) 55.9 % (45.0-75.0) Lymphocytes (%) (Auto) 34.5 % (20.0-45.0) Monocytes (%) (Auto) 6.9 % (1.0-10.0) Eosinophils (%) (Auto) 1.5 % (0.0-3.0) Basophils (%) (Auto) 1.1 % (0.0-2.0) Sodium Level 138 MMOL/L (136-145) Potassium Level 4.2 MMOL/L (3.5-5.1) Chloride Level 104 MMOL/L (98-107) Carbon Dioxide Level 24 MMOL/L (21-32) Anion Gap 10 mmol/L (5-15) Blood Urea Nitrogen 14 mg/dL (7-18) Creatinine 0.8 MG/DL (0.55-1.30) Estimat Glomerular Filtration Rate > 60 mL/min (>60) Glucose Level 152 MG/DL (74-106) #H Hemoglobin A1c 12.4 % (4.3-6.0) H Calcium Level 8.8 MG/DL (8.5-10.1) Total Bilirubin 0.3 MG/DL (0.2-1.0) Aspartate Amino Transf (AST/SGOT) 33 U/L (15-37) Alanine Aminotransferase (ALT/SGPT) 32 U/L (12-78) Alkaline Phosphatase 77 U/L (46-116) Total Protein 7.4 G/DL (6.4-8.2) Albumin 1.9 G/DL (3.4-5.0) L Globulin 5.5 g/dL Albumin/Globulin Ratio 0.3 (1.0-2.7) L Amylase Level 38 U/L (25-115) Lipase 104 U/L (73-393) Current Medications Medications (Trade) Dose Ordered Sig/Jorge Route PRN Reason Start Time Stop Time Status Last Admin Dose Admin Acetaminophen (Tylenol) 650 mg Q6H PRN ORAL Mild Pain (Pain Scale 1-3) 04/06/17 18:15 05/06/17 18:14 Acetaminophen/ Hydrocodone Bitart ([place] 10/325) 1 ea Q4H PRN ORAL Severe Pain (Pain Scale 7-10) 04/06/17 18:15 04/13/17 18:14 Acetaminophen/ Hydrocodone Bitart ([place] 5/325) 1 tab Q4H PRN ORAL Moderate Pain (Pain Scale 4-6) 04/06/17 18:15 04/13/17 18:14 Al Hydroxide/Mg Hydroxide (Mylanta) 15 ml Q6H PRN ORAL DYSPEPSIA 04/06/17 18:15 05/06/17 18:14 Amlodipine Besylate (Norvasc) 10 mg DAILY ORAL 04/08/17 09:00 05/08/17 08:59 04/08/17 09:29 Dextrose (Dextrose 50%) STAT PRN IV Hypoglycemia 04/07/17 11:15 05/07/17 11:14 Diphenhydramine HCl (Benadryl) 12.5 mg Q6H PRN IVP Itching/Pruritis 04/06/17 18:15 05/06/17 18:14 Docusate Sodium (Colace) 100 mg TWICE A DAY ORAL 04/07/17 09:00 05/07/17 08:59 04/08/17 09:29 Enoxaparin Sodium (Lovenox) 40 mg DAILY SUBQ 04/07/17 09:00 05/07/17 08:59 04/08/17 09:28 Hydromorphone HCl (Dilaudid) 0.5 mg Q3H PRN IVP Pain Score 1-3 04/06/17 18:15 04/13/17 18:14 Hydromorphone HCl (Dilaudid) 1 mg Q3H PRN IVP pain score 4-6 04/06/17 18:15 04/13/17 18:14 04/08/17 14:46 Hydromorphone HCl (Dilaudid) 2 mg Q3H PRN IVP pain score 7-10 04/06/17 18:15 04/13/17 18:14 Insulin Aspart (NovoLOG) BEFORE MEALS AND HS SUBQ 04/07/17 11:30 05/07/17 11:29 04/08/17 11:43 Insulin Aspart (NovoLOG) 3 units NOVOTIAC SUBQ 04/07/17 11:50 05/07/17 11:49 04/08/17 11:44 Insulin Detemir (Levemir) 20 units BEDTIME SUBQ 04/07/17 21:00 05/07/17 20:59 04/07/17 21:28 Magnesium Hydroxide (Mom) 30 ml BIDPRN PRN ORAL Constipation 04/06/17 18:15 05/06/17 18:14 Metoclopramide HCl (Reglan) 10 mg Q6H PRN IVP Nausea & Vomiting 04/06/17 18:15 05/06/17 18:14 Ondansetron HCl (Zofran) 4 mg Q6H PRN IVP Nausea & Vomiting 04/06/17 18:15 05/06/17 18:14 Piperacillin Sod/ Tazobactam Sod 3.375 gm/Dextrose 55 ml @ 13.75 mls/ hr EVERY 8 HOURS IVPB 04/06/17 21:00 04/11/17 20:59 04/08/17 13:33 Sennosides (Senokot) 8.6 mg BIDPRN PRN ORAL Constipation 2nd line agent 04/06/17 18:15 05/06/17 18:14 Vancomycin HCl (Vanco rx to dose) 1 ea DAILY PRN MISC Per rx protocol 04/07/17 17:45 05/07/17 17:44 Vancomycin HCl/ Dextrose 250 ml @ 166.667 mls/hr Q12HR@1000,2200 IVPB 04/08/17 10:00 04/13/17 09:59 04/08/17 09:30 CARISA GLOVER Apr 08, 2017 15:37
[2017-04-08 16:24] VITALS: BP 136/67
--- NOTE | 2017-04-08 16:48 | General Progress Note ---
Progress Note Progress Note Surgery: patient seen and examined at bedside. doing much better. no complaints. pain minimal. was able to ambulate with wound. no n/v/f/c. tolerating diet. afebrile, HD stable, labs reviewed. still with leukocytosis. dressings removed and wound evaluated. good healthy tissue noted. minimal superficial fibrinous tissue which will clean up with dressings. no drainage. good sensory, motor deficit at toes but can move foot. 3rd toe phlanges may not survive. will monitor -diet as tolerated -activity as tolerated -insulin -Abx as per ID -Dressings BID -will follow. -thank you Virgilio Zabala Apr 08, 2017 16:48
--- NOTE | 2017-04-08 18:15 | Consultation ---
DATE OF CONSULTATION: 04/08/2017 INFECTIOUS DISEASE CONSULTATION CONSULTING PHYSICIAN: Conor Tristan M.D. ATTENDING PHYSICIAN: Ml Floyd M.D. REASON FOR CONSULTATION: Infected left foot with gangrene and then left foot first and second toes gangrene, gram-negative infected wound, gram-positive infected wound, osteo, gram-positive bacteremia, and sepsis. CHIEF COMPLAINT: The patient's chief complaint coming in to the hospital is infected left foot. HISTORY OF PRESENT ILLNESS: This is a 61-year-old male with uncontrolled diabetes mellitus, who comes into [facility]. The patient had gangrene of the left foot first and second toe. The patient was status post amputation. Operative report was consistent with debridement of the left foot with amputation of first and second toes. An Infectious Disease consultation was requested for antibiotic management. Workup shows that the wound culture grew out gram negatives and gram positives and the blood culture showed gram-positive organisms. The patient was also septic on admission with elevated white count, fevers, and SIRS criteria. The patient was placed on vancomycin and Zosyn pending workup. Case was discussed with Dr. Floyd. REVIEW OF SYSTEMS: CONSTITUTIONAL: Generalized weakness, fatigue, status post amputation of the left foot, which is covered. HEAD AND NECK: No head pain or neck pain. CARDIAC: No chest pain. GASTROINTESTINAL: No nausea, vomiting, or diarrhea. GENITOURINARY: No Springer. PULMONARY: No congestion or shortness of breath. SKIN: No rash or itching. EXTREMITIES: No extremity pain. NEUROLOGIC: No seizures. PAST MEDICAL HISTORY: The patient's past medical history includes the following. The patient has a past medical history of diabetes and hypertension. MEDICATIONS: Upon reviewing the MAR, the patient is on the following medications. He is on vancomycin, Norvasc, Levemir, Zosyn, IV fluids, Lovenox, Colace, Dilaudid, [place], Tylenol, Zofran, Reglan, Senokot, 02:17, Mylanta, and Benadryl. ALLERGIES: No known drug allergies. SOCIAL HISTORY: Negative for smoking, alcohol, or drug use FAMILY HISTORY: Noncontributory. PHYSICAL EXAMINATION: VITAL SIGNS: Temperature is 98.0 degrees, pulse 85, respiratory rate 18, blood pressure 152/72, saturation 96%. T-max 100.8 degrees. GENERAL: Alert, responsive, in no acute distress. HEAD AND NECK: Oral exam, no thrush. Eye exam, no icterus. Normocephalic. No facial droop. No neck stiffness. Neck is supple. HEART: Regular. No gallop or murmur. ABDOMEN: Soft. Positive bowel sounds. Nontender. LUNGS: Clear bilaterally. No rhonchi or rales. SKIN: No rash. MUSCULOSKELETAL: No effusion. Legs are without cellulitis. PERIPHERAL VASCULAR: Left foot is covered. Pictures were reviewed and he had gangrenous changes, status post amputation. NEUROLOGIC: Intact. Nonfocal. LINES: Line sites without phlebitis. GENITOURINARY: No Springer. LABORATORY DATA: Laboratory data is as follows: White count 12.6, hemoglobin 11.7. White count on admission 16.1. Creatinine is 0.8. The patient's wound culture of the left foot and bone had gram negatives and gram positives. Blood culture is gram-positive, identification pending for all the organisms. Creatinine 0.8. White count on admission 16.1, now white count 12.6, hemoglobin 11.7. IMAGING STUDIES: X-ray of the foot is consistent with osteo, destruction of first proximal and distal phalanx, consistent with osteo associated with extensive gas, left great toe. ASSESSMENT AND PLAN: 1. The patient has left foot first and second toe gangrene with infected wound and osteomyelitis, secondary to gram negatives and gram positives, here with gram-positive bacteremia, sepsis, leukocytosis, sepsis criteria, and systemic inflammatory response syndrome criteria. The patient will be continued on vancomycin and Zosyn. Check cultures. Check followup labs. Continue treatment per Surgery. Further debridement as needed for surgery. The patient is status post amputation of the left foot first and second toe. Continue vancomycin and Zosyn now pending workup. 2. Diabetes mellitus. 3. Hypertension. 4. Blood sugar and blood pressure treatment per Dr. Floyd. 5. Case discussed Dr. Floyd. 6. Social history is negative. 7. Family history noncontributory 8. Allergies negative. 9. MAR was noted. 10. Case was discussed with RN. 11. Continue treatment per primary consultants. Conor Tristan M.D. DR: Radha JOB#: [id number] CC:
[2017-04-08 20:00] VITALS: BP 162/74
[2017-04-08] MEDS: Levemir Flexpen SUBQ SCH (21:43)
[2017-04-08] MEDS: Norco 10mg/325mg tab ORAL PRN (23:05)
[2017-04-09] VITALS: BP 150/60
[2017-04-09 04:00] VITALS: BP 166/76
[2017-04-09] MEDS: Zoysn 3.37gm in D5W 55ml IVPB SCH ×2 (04:58→15:14)
[2017-04-09] MEDS: NovoLOG Insulin Flexpen SUBQ SCH ×7 (05:58→21:04)
[2017-04-09 07:40] LABS: BASOPHILS % (AUTO) 1.5 % (0.0-2.0); EOSINOPHILS % (AUTO) 2.3 % (0.0-3.0); LYMPHOCYTES % (AUTO) 34.6 % (20.0-45.0); MEAN CORPUSCULAR HEMOGLOBIN 28.6 PG (27.0-31.0); MEAN CORPUSCULAR HGB CONC 33.9 G/DL (32.0-36.0); MEAN CORPUSCULAR VOLUME 84 FL (80-99); MEAN PLATELET VOLUME 6.4 FL (6.5-10.1); MONOCYTES % (AUTO) 10.1 % (1.0-10.0); NEUTROPHILS % (AUTO) 51.5 % (45.0-75.0); PLATELET COUNT 482 K/UL (150-450); RED BLOOD COUNT 4.12 M/UL (4.70-6.10); RED CELL DISTRIBUTION WIDTH 12.1 % (11.6-14.8)
[2017-04-09 08:00] VITALS: BP 149/54
[2017-04-09 08:16] LABS: ANION GAP 6 mmol/L (5-15); CALCIUM 8.8 MG/DL (8.5-10.1); CARBON DIOXIDE 30 MMOL/L (21-32); CHLORIDE 102 MMOL/L (98-107); CREATININE 0.7 MG/DL (0.55-1.30); GLOMERULAR FILTRATION RATE > 60 mL/min (>60); POTASSIUM 3.5 MMOL/L (3.5-5.1); SODIUM 138 MMOL/L (136-145)
[2017-04-09] MEDS: Docusate 100mg cap ORAL SCH ×2 (09:14→18:00)
[2017-04-09] MEDS: Enoxaparin 40mg Inj SUBQ SCH (09:15)
--- NOTE | 2017-04-09 10:26 | General Progress Note ---
Assessment/Plan Assessment/Plan Gram Poitive Bacteremia Strep Agalactiaea - IV Abx per ID. Bone C+S Enterococci! !! 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 Check 2 D Echo R/O vegetations!! D. Neuropathy. PVD - check Duplex. Pt. very sick! Subjective Allergies: Coded Allergies: No Known Allergies (Unverified , 04/06/17) Subjective No new c/o Objective Last 24 Hour Vital Signs Date Time Temp Pulse Resp B/P (MAP) Pulse Ox O2 Delivery O2 Flow Rate FiO2 04/09/17 09:14 74 149/54 04/09/17 08:00 98.6 74 19 149/54 96 Room Air 04/09/17 04:00 97.5 68 20 166/76 98 Room Air 04/09/17 00:04 99.7 04/09/17 00:00 97.9 69 18 150/60 97 Room Air 04/08/17 20:00 99.7 77 20 162/74 96 Room Air 04/08/17 16:24 96.4 72 18 136/67 94 Room Air 04/08/17 12:00 98.0 85 18 152/72 96 Room Air Intake and Output 04/09/17 04/10/17 19:00 07:00 Intake Total 240 ml Balance 240 ml Intake Oral 240 ml Laboratory Tests 04/09/17 06:50: White Blood Count 10.0, Red Blood Count 4.12L, Hemoglobin 11.8L, Hematocrit 34.8L, Mean Corpuscular Volume 84, Mean Corpuscular Hemoglobin 28.6, Mean Corpuscular Hemoglobin Concent 33.9, Red Cell Distribution Width 12.1, Platelet Count 482H, Mean Platelet Volume 6.4L, Neutrophils (%) (Auto) 51.5, Lymphocytes (%) (Auto) 34.6, Monocytes (%) (Auto) 10.1H, Eosinophils (%) (Auto) 2.3, Basophils (%) (Auto) 1.5, Sodium Level 138, Potassium Level 3.5, Chloride Level 102, Carbon Dioxide Level 30, Anion Gap 6, Blood Urea Nitrogen 11, Creatinine 0.7, Estimat Glomerular Filtration Rate > 60, Glucose Level 137H, Calcium Level 8.8 04/09/17 07:20: Urine Random Creatinine [Pending], Urine Random Microalbumin [Pending], Urine Microalbumin/Creatinine Ratio [Pending] 04/09/17 09:44: Vancomycin Level Trough 10.8 Height (Feet): 5 Height (Inches): 10.00 Weight (Pounds): 164 Objective Cv RR Lungs CTA Abd SNT. BS + E No CCe. Lt. foot dressed. PHILIPP LORD Apr 09, 2017 10:26
[2017-04-09] MEDS: Vancomycin 1250mg/D5W 250ml IVPB SCH (10:39)
[2017-04-09] MEDS: Norco 10mg/325mg tab ORAL PRN ×2 (11:15→20:26)
[2017-04-09 12:00] VITALS: BP 140/77
[2017-04-09 16:00] VITALS: BP 135/70
--- NOTE | 2017-04-09 19:01 | Infectious Diseases Prog Note ---
Assessment/Plan Assessment/Plan ASSESSMENT AND PLAN: 1. enterobacter/enterococcus left foot 1st/2nd toe infect wound/gangrene/osteo, strep bacteremia, sepsis, leukocytosis, fevers - s/p debridement and resection left foot 1st/2nd toes - vancomycin and zosyn - check surveillance blood cultures - check labs - surgery f/u 2. Diabetes mellitus. 3. Hypertension. 4. Blood sugar and blood pressure treatment per Dr. Floyd. 5. Case discussed Dr. Floyd. 6. Social history is negative. 7. Family history noncontributory 8. Allergies negative. 9. MAR was noted. 10. Case was discussed with RN. 11. Continue treatment per primary consultants. Subjective Constitutional: Denies: fever HEENT: Denies: congestion Respiratory: Denies: shortness of breath Cardiovascular: Denies: chest pain Gastrointestinal/Abdominal: Denies: nausea, vomiting, diarrhea Genitourinary: Denies: dysuria Neurologic: Denies: headache Psychiatric: Denies: depression Skin: Denies: rash Hematologic: Denies: bleeding Musculoskeletal: Denies: pain Allergies: Coded Allergies: No Known Allergies (Unverified , 04/06/17) Objective Vital Signs Last 24 Hour Vital Signs Date Time Temp Pulse Resp B/P (MAP) Pulse Ox O2 Delivery O2 Flow Rate FiO2 04/09/17 16:00 97.6 83 19 135/70 96 Room Air 04/09/17 12:00 97.8 82 18 140/77 99 Room Air 04/09/17 09:14 74 149/54 04/09/17 08:00 98.6 74 19 149/54 96 Room Air 04/09/17 04:00 97.5 68 20 166/76 98 Room Air 04/09/17 00:04 99.7 04/09/17 00:00 97.9 69 18 150/60 97 Room Air 04/08/17 20:00 99.7 77 20 162/74 96 Room Air Height (Feet): 5 Height (Inches): 10.00 Weight (Pounds): 164 General Appearance: no acute distress HEENT: normocephalic, atraumatic, anicteric, mucous membranes moist, EOMI, pharynx normal, supple, no JVD Respiratory/Chest: lungs clear, normal breath sounds, no respiratory distress, no accessory muscle use Cardiovascular: normal rate, regular rhythm, no gallop/murmur, no JVD Abdomen: normal bowel sounds, soft, non tender, no organomegaly, non distended Genitourinary: other - no elias Extremities: other - left foot covered Skin: no rash 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 Findings are consistent with severe osteomyelitis Rarefaction of the head of the first metatarsal, could also indicate osteomyelitis changes Extensive gas within the plantar soft tissues of the great toe, consistent with infection by gas-forming organism. Absence of the distal aspect of the second distal phalanx, could indicate prior amputation or destruction secondary osteomyelitis. Correlate with clinical history and findings Other findings as noted above Microbiology Date/Time Source Procedure Growth Status 04/06/17 14:30 Blood Blood Culture - Preliminary NO GROWTH AFTER 48 HOURS Resulted 04/06/17 17:49 Bone Gram Stain Pending Resulted 04/06/17 17:49 Surgical Biopsy Culture - Final Enterobacter Cloacae Complex Enterococcus Faecalis Resulted 04/06/17 17:49 Aerobic Culture - Final Enterobacter Cloacae Complex Enterococcus Faecalis Resulted 04/06/17 17:49 Bone Anaerobic Culture - Preliminary NO ANAEROBES ISOLATED Resulted Laboratory Tests Test 04/09/17 06:50 04/09/17 07:20 04/09/17 09:44 White Blood Count 10.0 K/UL (4.8-10.8) Red Blood Count 4.12 M/UL (4.70-6.10) L Hemoglobin 11.8 G/DL (14.2-18.0) L Hematocrit 34.8 % (42.0-52.0) L Mean Corpuscular Volume 84 FL (80-99) Mean Corpuscular Hemoglobin 28.6 PG (27.0-31.0) Mean Corpuscular Hemoglobin Concent 33.9 G/DL (32.0-36.0) Red Cell Distribution Width 12.1 % (11.6-14.8) Platelet Count 482 K/UL (150-450) H Mean Platelet Volume 6.4 FL (6.5-10.1) L Neutrophils (%) (Auto) 51.5 % (45.0-75.0) Lymphocytes (%) (Auto) 34.6 % (20.0-45.0) Monocytes (%) (Auto) 10.1 % (1.0-10.0) H Eosinophils (%) (Auto) 2.3 % (0.0-3.0) Basophils (%) (Auto) 1.5 % (0.0-2.0) Sodium Level 138 MMOL/L (136-145) Potassium Level 3.5 MMOL/L (3.5-5.1) Chloride Level 102 MMOL/L (98-107) Carbon Dioxide Level 30 MMOL/L (21-32) Anion Gap 6 mmol/L (5-15) Blood Urea Nitrogen 11 mg/dL (7-18) Creatinine 0.7 MG/DL (0.55-1.30) Estimat Glomerular Filtration Rate > 60 mL/min (>60) Glucose Level 137 MG/DL (74-106) H Calcium Level 8.8 MG/DL (8.5-10.1) Urine Random Creatinine Pending Urine Random Microalbumin Pending Urine Microalbumin/Creatinine Ratio Pending Vancomycin Level Trough 10.8 ug/mL (5.0-12.0) Current Medications Medications (Trade) Dose Ordered Sig/Jorge Route PRN Reason Start Time Stop Time Status Last Admin Dose Admin Acetaminophen (Tylenol) 650 mg Q6H PRN ORAL Mild Pain (Pain Scale 1-3) 04/06/17 18:15 05/06/17 18:14 Acetaminophen/ Hydrocodone Bitart ([facility] 10/325) 1 ea Q4H PRN ORAL Severe Pain (Pain Scale 7-10) 04/06/17 18:15 04/13/17 18:14 04/09/17 11:15 Acetaminophen/ Hydrocodone Bitart ([facility] 5/325) 1 tab Q4H PRN ORAL Moderate Pain (Pain Scale 4-6) 04/06/17 18:15 04/13/17 18:14 Al Hydroxide/Mg Hydroxide (Mylanta) 15 ml Q6H PRN ORAL DYSPEPSIA 04/06/17 18:15 05/06/17 18:14 Amlodipine Besylate (Norvasc) 10 mg DAILY ORAL 04/08/17 09:00 05/08/17 08:59 04/09/17 09:14 Dextrose (Dextrose 50%) STAT PRN IV Hypoglycemia 04/07/17 11:15 05/07/17 11:14 Diphenhydramine HCl (Benadryl) 12.5 mg Q6H PRN IVP Itching/Pruritis 04/06/17 18:15 05/06/17 18:14 Docusate Sodium (Colace) 100 mg TWICE A DAY ORAL 04/07/17 09:00 05/07/17 08:59 04/09/17 09:14 Enoxaparin Sodium (Lovenox) 40 mg DAILY SUBQ 04/07/17 09:00 05/07/17 08:59 04/09/17 09:15 Hydromorphone HCl (Dilaudid) 0.5 mg Q3H PRN IVP Pain Score 1-3 04/06/17 18:15 04/13/17 18:14 Hydromorphone HCl (Dilaudid) 1 mg Q3H PRN IVP pain score 4-6 04/06/17 18:15 04/13/17 18:14 04/08/17 14:46 Hydromorphone HCl (Dilaudid) 2 mg Q3H PRN IVP pain score 7-10 04/06/17 18:15 04/13/17 18:14 Insulin Aspart (NovoLOG) BEFORE MEALS AND HS SUBQ 04/07/17 11:30 05/07/17 11:29 04/09/17 16:30 Insulin Aspart (NovoLOG) 3 units NOVOTIAC SUBQ 04/07/17 11:50 05/07/17 11:49 04/09/17 16:50 Insulin Detemir (Levemir) 20 units BEDTIME SUBQ 04/07/17 21:00 05/07/17 20:59 04/08/17 21:43 Magnesium Hydroxide (Mom) 30 ml BIDPRN PRN ORAL Constipation 04/06/17 18:15 05/06/17 18:14 Metoclopramide HCl (Reglan) 10 mg Q6H PRN IVP Nausea & Vomiting 04/06/17 18:15 05/06/17 18:14 Ondansetron HCl (Zofran) 4 mg Q6H PRN IVP Nausea & Vomiting 04/06/17 18:15 05/06/17 18:14 Piperacillin Sod/ Tazobactam Sod 3.375 gm/Dextrose 55 ml @ 13.75 mls/ hr EVERY 8 HOURS IVPB 04/06/17 21:00 04/11/17 20:59 04/09/17 15:14 Sennosides (Senokot) 8.6 mg BIDPRN PRN ORAL Constipation 2nd line agent 04/06/17 18:15 05/06/17 18:14 04/09/17 09:14 Vancomycin HCl (Vanco rx to dose) 1 ea DAILY PRN MISC Per rx protocol 04/07/17 17:45 05/07/17 17:44 Vancomycin HCl 1 gm/Dextrose 275 ml @ 183.708 mls/hr Q8HR@0200,1000,1800 IVPB 04/09/17 18:00 04/14/17 17:59 CARISA GLOVER Apr 09, 2017 19:01
[2017-04-09] MEDS: Vancomycin 1gm/D5W 275ml IVPB SCH ×2 (19:29)
[2017-04-09 20:00] VITALS: BP 159/69
[2017-04-09] MEDS: Levemir Flexpen SUBQ SCH (21:04)
[2017-04-09] MEDS: Piperacillin/Tazobactam 3.375 GM in D5W 55 ML IVPB SCH (21:05)
[2017-04-10] VITALS (7 sets, daily range): BP systolic 134–166; BP diastolic 52–77
[2017-04-10] MEDS: Vancomycin 1gm/D5W 275ml IVPB SCH ×6 (01:38→17:59)
[2017-04-10] MEDS: Norco 10mg/325mg tab ORAL PRN ×4 (03:33→22:35)
[2017-04-10] MEDS: Piperacillin/Tazobactam 3.375 GM in D5W 55 ML IVPB SCH ×3 (05:50→21:55)
[2017-04-10] MEDS: NovoLOG Insulin Flexpen SUBQ SCH ×7 (05:56→21:49)
[2017-04-10] MEDS ORDERED: Tubing IV Secondary IV ONE (09:10)
[2017-04-10] MEDS: Docusate 100mg cap ORAL SCH ×2 (09:30→18:00)
--- NOTE | 2017-04-10 09:38 | General Progress Note ---
Progress Note Progress Note Surgery: Patient seen and examined at bedside. no acute events. doing better. pain controlled. no n/v/f/c. Afebrile, HD stable, wbc 10k, labs okay. glucose better controlled dressings removed and wound evaluated. good granulation tissue forming. no drainage. wound clean without signs of worsening infection. seems we have achieved great source control and no further debridement necessary at this time. 3rd toe still questionable if can be salvaged. continue with BID dressings changes will start considering closure of wound. given lack of sufficient tissue for closure will consider skin graft vs flap vs complex closure. continue IV Abx ambulate as tolerated Virgilio Zabala Apr 10, 2017 09:38
[2017-04-10] MEDS: Enoxaparin 40mg Inj SUBQ SCH (09:49)
--- NOTE | 2017-04-10 12:00 | General Progress Note ---
Assessment/Plan Assessment/Plan Gram Poitive Bacteremia Strep Agalactiaea - IV Abx per ID. Bone C+S Enterococci! !! 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 Check 2 D Echo R/O vegetations!! D. Neuropathy. PVD - check Duplex. Pt. very sick! Subjective Allergies: Coded Allergies: No Known Allergies (Unverified , 04/06/17) Subjective No new c/o. Consuming non diabetic food from home? Had Foot dressing changed by Dr. Zabala. Denies feet + hand paresthesias?? Objective Last 24 Hour Vital Signs Date Time Temp Pulse Resp B/P (MAP) Pulse Ox O2 Delivery O2 Flow Rate FiO2 04/10/17 09:30 79 148/66 04/10/17 08:00 98.5 79 19 148/66 99 Room Air 04/10/17 04:00 97.4 81 18 156/75 98 Room Air 04/10/17 00:00 98.3 67 21 134/52 97 Room Air 04/09/17 20:00 98.8 74 21 159/69 96 Room Air 04/09/17 16:00 97.6 83 19 135/70 96 Room Air 04/09/17 12:00 97.8 82 18 140/77 99 Room Air Intake and Output 04/10/17 04/11/17 19:00 07:00 Intake Total 183.708 ml Balance 183.708 ml IV Total 183.708 ml Height (Feet): 5 Height (Inches): 10.00 Weight (Pounds): 164 Objective Cv RR Lungs CTA Abd SNT. BS + E No CCe. Lt. foot dressed. PHILIPP LORD Apr 10, 2017 12:00
[2017-04-10] MEDS ORDERED: Hydromorphone 0.5mg/0.5ml inj IVP PRN (13:00)
--- NOTE | 2017-04-10 18:03 | Infectious Diseases Prog Note ---
Assessment/Plan Assessment/Plan ASSESSMENT AND PLAN: 1. enterobacter/enterococcus left foot 1st/2nd toe infect wound/gangrene/osteo, strep bacteremia, sepsis, leukocytosis, fevers - s/p debridement and resection left foot 1st/2nd toes - vancomycin and zosyn - check surveillance blood cultures - negative so far - check labs - surgery f/u 2. Diabetes mellitus. 3. Hypertension. 4. Blood sugar and blood pressure treatment per Dr. Floyd. 5. Case discussed Dr. Floyd. 6. Social history is negative. 7. Family history noncontributory 8. Allergies negative. 9. MAR was noted. 10. Case was discussed with RN. 11. Continue treatment per primary consultants. Subjective Constitutional: Denies: fever HEENT: Denies: congestion Respiratory: Denies: shortness of breath Cardiovascular: Denies: chest pain Gastrointestinal/Abdominal: Denies: nausea, vomiting, diarrhea Genitourinary: Denies: dysuria, hematuria Neurologic: Denies: headache Psychiatric: Denies: depression Skin: Denies: rash Hematologic: Denies: bleeding Musculoskeletal: Denies: pain Allergies: Coded Allergies: No Known Allergies (Unverified , 04/06/17) Objective Vital Signs Last 24 Hour Vital Signs Date Time Temp Pulse Resp B/P (MAP) Pulse Ox O2 Delivery O2 Flow Rate FiO2 04/10/17 16:46 97.5 20 166/77 99 Room Air 04/10/17 16:00 98.9 87 19 165/77 98 Room Air 04/10/17 12:00 97.3 78 20 145/62 97 Room Air 04/10/17 09:30 79 148/66 04/10/17 08:00 98.5 79 19 148/66 99 Room Air 04/10/17 04:00 97.4 81 18 156/75 98 Room Air 04/10/17 00:00 98.3 67 21 134/52 97 Room Air 04/09/17 20:00 98.8 74 21 159/69 96 Room Air Height (Feet): 5 Height (Inches): 10.00 Weight (Pounds): 164 General Appearance: no acute distress HEENT: normocephalic, atraumatic, anicteric, mucous membranes moist Respiratory/Chest: lungs clear, normal breath sounds, no respiratory distress, no accessory muscle use Cardiovascular: normal rate, regular rhythm, no gallop/murmur, no JVD Abdomen: normal bowel sounds, soft, non tender, no organomegaly, non distended Genitourinary: other - no elias Extremities: no cyanosis Skin: no rash 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 Findings are consistent with severe osteomyelitis Rarefaction of the head of the first metatarsal, could also indicate osteomyelitis changes Extensive gas within the plantar soft tissues of the great toe, consistent with infection by gas-forming organism. Absence of the distal aspect of the second distal phalanx, could indicate prior amputation or destruction secondary osteomyelitis. Correlate with clinical history and findings Other findings as noted above Microbiology Date/Time Source Procedure Growth Status 04/08/17 16:05 Blood Blood Culture - Preliminary NO GROWTH AFTER 24 HOURS Resulted 04/06/17 17:49 Bone Gram Stain Pending Resulted 04/06/17 17:49 Surgical Biopsy Culture - Final Enterobacter Cloacae Complex Enterococcus Faecalis Resulted 04/06/17 17:49 Aerobic Culture - Final Enterobacter Cloacae Complex Enterococcus Faecalis Resulted 04/06/17 17:49 Bone Anaerobic Culture - Final NO ANAEROBES ISOLATED Resulted Labs Test 04/08/17 06:10 04/09/17 06:50 04/09/17 07:20 04/09/17 09:44 White Blood Count 12.6 K/UL (4.8-10.8) 10.0 K/UL (4.8-10.8) Red Blood Count 4.05 M/UL (4.70-6.10) 4.12 M/UL (4.70-6.10) Hemoglobin 11.7 G/DL (14.2-18.0) 11.8 G/DL (14.2-18.0) Hematocrit 34.2 % (42.0-52.0) 34.8 % (42.0-52.0) Mean Corpuscular Volume 85 FL (80-99) 84 FL (80-99) Mean Corpuscular Hemoglobin 28.9 PG (27.0-31.0) 28.6 PG (27.0-31.0) Mean Corpuscular Hemoglobin Concent 34.1 G/DL (32.0-36.0) 33.9 G/DL (32.0-36.0) Red Cell Distribution Width 12.1 % (11.6-14.8) 12.1 % (11.6-14.8) Platelet Count 485 K/UL (150-450) 482 K/UL (150-450) Mean Platelet Volume 6.6 FL (6.5-10.1) 6.4 FL (6.5-10.1) Neutrophils (%) (Auto) 55.9 % (45.0-75.0) 51.5 % (45.0-75.0) Lymphocytes (%) (Auto) 34.5 % (20.0-45.0) 34.6 % (20.0-45.0) Monocytes (%) (Auto) 6.9 % (1.0-10.0) 10.1 % (1.0-10.0) Eosinophils (%) (Auto) 1.5 % (0.0-3.0) 2.3 % (0.0-3.0) Basophils (%) (Auto) 1.1 % (0.0-2.0) 1.5 % (0.0-2.0) Sodium Level 138 MMOL/L (136-145) 138 MMOL/L (136-145) Potassium Level 4.2 MMOL/L (3.5-5.1) 3.5 MMOL/L (3.5-5.1) Chloride Level 104 MMOL/L (98-107) 102 MMOL/L (98-107) Carbon Dioxide Level 24 MMOL/L (21-32) 30 MMOL/L (21-32) Anion Gap 10 mmol/L (5-15) 6 mmol/L (5-15) Blood Urea Nitrogen 14 mg/dL (7-18) 11 mg/dL (7-18) Creatinine 0.8 MG/DL (0.55-1.30) 0.7 MG/DL (0.55-1.30) Estimat Glomerular Filtration Rate > 60 mL/min (>60) > 60 mL/min (>60) Glucose Level 152 MG/DL (74-106) 137 MG/DL (74-106) Hemoglobin A1c 12.4 % (4.3-6.0) Calcium Level 8.8 MG/DL (8.5-10.1) 8.8 MG/DL (8.5-10.1) Total Bilirubin 0.3 MG/DL (0.2-1.0) Aspartate Amino Transf (AST/SGOT) 33 U/L (15-37) Alanine Aminotransferase (ALT/SGPT) 32 U/L (12-78) Alkaline Phosphatase 77 U/L (46-116) Total Protein 7.4 G/DL (6.4-8.2) Albumin 1.9 G/DL (3.4-5.0) Globulin 5.5 g/dL Albumin/Globulin Ratio 0.3 (1.0-2.7) Amylase Level 38 U/L (25-115) Lipase 104 U/L (73-393) Vancomycin Level Trough 10.8 ug/mL (5.0-12.0) Current Medications Medications (Trade) Dose Ordered Sig/Jorge Route PRN Reason Start Time Stop Time Status Last Admin Dose Admin Acetaminophen (Tylenol) 650 mg Q6H PRN ORAL Mild Pain (Pain Scale 1-3) 04/06/17 18:15 05/06/17 18:14 Acetaminophen/ Hydrocodone Bitart ([place] 10/325) 1 ea Q4H PRN ORAL Severe Pain (Pain Scale 7-10) 04/06/17 18:15 04/13/17 18:14 04/10/17 17:58 Acetaminophen/ Hydrocodone Bitart ([place] 5/325) 1 tab Q4H PRN ORAL Moderate Pain (Pain Scale 4-6) 04/06/17 18:15 04/13/17 18:14 Al Hydroxide/Mg Hydroxide (Mylanta) 15 ml Q6H PRN ORAL DYSPEPSIA 04/06/17 18:15 05/06/17 18:14 Amlodipine Besylate (Norvasc) 10 mg DAILY ORAL 04/08/17 09:00 05/08/17 08:59 04/10/17 09:30 Dextrose (Dextrose 50%) STAT PRN IV Hypoglycemia 04/07/17 11:15 05/07/17 11:14 Diphenhydramine HCl (Benadryl) 12.5 mg Q6H PRN IVP Itching/Pruritis 04/06/17 18:15 05/06/17 18:14 Docusate Sodium (Colace) 100 mg TWICE A DAY ORAL 04/07/17 09:00 05/07/17 08:59 04/10/17 09:30 Enoxaparin Sodium (Lovenox) 40 mg DAILY SUBQ 04/07/17 09:00 05/07/17 08:59 04/10/17 09:49 Hydromorphone HCl (Dilaudid) 0.5 mg Q3H PRN IVP Pain Score 1-3 04/06/17 18:15 04/13/17 18:14 Hydromorphone HCl (Dilaudid) 1 mg Q3H PRN IVP pain score 4-6 04/10/17 13:00 04/13/17 18:14 Hydromorphone HCl (Dilaudid) 2 mg Q3H PRN IVP pain score 7-10 04/06/17 18:15 04/13/17 18:14 Insulin Aspart (NovoLOG) BEFORE MEALS AND HS SUBQ 04/07/17 11:30 05/07/17 11:29 04/10/17 16:51 Insulin Aspart (NovoLOG) 3 units NOVOTIAC SUBQ 04/07/17 11:50 05/07/17 11:49 04/10/17 16:51 Insulin Detemir (Levemir) 20 units BEDTIME SUBQ 04/07/17 21:00 05/07/17 20:59 04/09/17 21:04 Magnesium Hydroxide (Mom) 30 ml BIDPRN PRN ORAL Constipation 04/06/17 18:15 05/06/17 18:14 Metoclopramide HCl (Reglan) 10 mg Q6H PRN IVP Nausea & Vomiting 04/06/17 18:15 05/06/17 18:14 Ondansetron HCl (Zofran) 4 mg Q6H PRN IVP Nausea & Vomiting 04/06/17 18:15 05/06/17 18:14 Piperacillin Sod/ Tazobactam Sod 3.375 gm/Dextrose 55 ml @ 13.75 mls/ hr EVERY 8 HOURS IVPB 04/09/17 22:00 04/14/17 21:59 04/10/17 13:47 Sennosides (Senokot) 8.6 mg BIDPRN PRN ORAL Constipation 2nd line agent 04/06/17 18:15 05/06/17 18:14 04/09/17 09:14 Vancomycin HCl (Vanco rx to dose) 1 ea DAILY PRN MISC Per rx protocol 04/07/17 17:45 05/07/17 17:44 Vancomycin HCl 1 gm/Dextrose 275 ml @ 183.708 mls/hr Q8HR@0200,1000,1800 IVPB 04/09/17 18:00 04/14/17 17:59 04/10/17 17:59 CARISA GLOVER Apr 10, 2017 18:03
[2017-04-10 19:00] LABS: APPEARANCE,URINE SLIGHTLY CLOUDY; KETONES,URINE NEGATIVE (NEGATIVE); LEUKOCYTE ESTERASE ,URINE NEGATIVE (NEGATIVE); NITRITE,URINE NEGATIVE (NEGATIVE); PH,URINE 6 (4.5-8.0); PROTEIN,URINE 3+ (NEGATIVE); UROBILINOGEN,URINE NORMAL MG/DL (0.0-1.0)
[2017-04-10 19:13] LABS: BACTERIA,URINE FEW /HPF; GRANULAR CASTS,URINE 0-2 /LPF; SQUAMOUS EPITHELIAL CELL,UR OCCASIONAL /LPF (NONE/OCC); WBC,URINE 0-2 /HPF (0 - 0)
[2017-04-10] MEDS: Levemir Flexpen SUBQ SCH (21:53)
[2017-04-11 00:08] VITALS: BP 140/61
[2017-04-11] MEDS: Vancomycin 1gm/D5W 275ml IVPB SCH ×6 (02:05→18:48)
[2017-04-11 04:00] VITALS: BP 139/66
[2017-04-11] MEDS: Piperacillin/Tazobactam 3.375 GM in D5W 55 ML IVPB SCH ×3 (06:16→22:34)
[2017-04-11] MEDS: Norco 10mg/325mg tab ORAL PRN ×3 (06:17→18:46)
[2017-04-11] MEDS: NovoLOG Insulin Flexpen SUBQ SCH ×7 (06:20→20:23)
[2017-04-11 07:06] LABS: BASOPHILS % (AUTO) 1.3 % (0.0-2.0); EOSINOPHILS % (AUTO) 2.1 % (0.0-3.0); LYMPHOCYTES % (AUTO) 32.7 % (20.0-45.0); MEAN CORPUSCULAR HEMOGLOBIN 27.8 PG (27.0-31.0); MEAN CORPUSCULAR HGB CONC 33.1 G/DL (32.0-36.0); MEAN CORPUSCULAR VOLUME 84 FL (80-99); MEAN PLATELET VOLUME 6.3 FL (6.5-10.1); MONOCYTES % (AUTO) 13.4 % (1.0-10.0); NEUTROPHILS % (AUTO) 50.4 % (45.0-75.0); PLATELET COUNT 487 K/UL (150-450); RED CELL DISTRIBUTION WIDTH 12.2 % (11.6-14.8); WHITE BLOOD COUNT 9.9 K/UL (4.8-10.8)
[2017-04-11 07:27] LABS: ALANINE AMINOTRANSFERASE 44 U/L (12-78); ALBUMIN/GLOBULIN RATIO 0.4 (1.0-2.7); ANION GAP 10 mmol/L (5-15); ASPARTATE AMINO TRANSFERASE 23 U/L (15-37); CALCIUM 8.7 MG/DL (8.5-10.1); CARBON DIOXIDE 26 MMOL/L (21-32); CHLORIDE 101 MMOL/L (98-107); CREATININE 0.9 MG/DL (0.55-1.30); GLOMERULAR FILTRATION RATE > 60 mL/min (>60); POTASSIUM 3.8 MMOL/L (3.5-5.1); SODIUM 137 MMOL/L (136-145); TOTAL PROTEIN 7.2 G/DL (6.4-8.2)
[2017-04-11 07:53] LABS: MAGNESIUM 1.8 MG/DL (1.8-2.4)
[2017-04-11 08:00] VITALS: BP 131/61
[2017-04-11] MEDS: Docusate 100mg cap ORAL SCH ×2 (08:40→18:48)
[2017-04-11] MEDS: Enoxaparin 40mg Inj SUBQ SCH (08:41)
[2017-04-11 09:17] LABS: HEMOGLOBIN A1C 12.3 % (4.3-6.0)
[2017-04-11 12:00] VITALS: BP 151/63
--- NOTE | 2017-04-11 12:16 | General Progress Note ---
Assessment/Plan Assessment/Plan Gram Poitive Bacteremia Strep Agalactiaea - IV Abx per ID. Bone C+S Enterococci! !! 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 2 D Echo no vegetations!! D. Neuropathy. PVD - check Duplex. Needs SNF? Subjective Allergies: Coded Allergies: No Known Allergies (Unverified , 04/06/17) Subjective No new c/o. Consuming non diabetic food from home? Had Foot dressing changed by Dr. Zabala. Denies feet + hand paresthesias?? Objective Last 24 Hour Vital Signs Date Time Temp Pulse Resp B/P (MAP) Pulse Ox O2 Delivery O2 Flow Rate FiO2 04/11/17 12:00 98.4 72 19 151/63 98 04/11/17 09:20 97 Room Air 04/11/17 08:37 76 131/61 04/11/17 08:00 98.2 76 20 131/61 04/11/17 04:00 99.2 76 21 139/66 99 Room Air 04/11/17 00:08 98.3 69 18 140/61 96 Room Air 04/10/17 20:17 98.4 77 18 145/66 96 Room Air 04/10/17 16:46 97.5 20 166/77 99 Room Air 04/10/17 16:00 98.9 87 19 165/77 98 Room Air Laboratory Tests 04/10/17 18:17: Urine Color Pale yellow, Urine Appearance Slightly cloudy, Urine pH 6, Urine Specific [place] 1.015, Urine Protein 3+H, Urine Glucose (UA) 1+H, Urine Ketones Negative, Urine Occult Blood 2+H, Urine Nitrite Negative, Urine Bilirubin Negative, Urine Urobilinogen Normal, Urine Leukocyte Esterase Negative , Urine RBC 5-10H, Urine WBC 0-2, Urine Squamous Epithelial Cells Occasional, Urine Bacteria Few, Urine Granular Casts 0-2H 04/11/17 05:50: White Blood Count 9.9, Red Blood Count 4.00L, Hemoglobin 11.1L, Hematocrit 33.6L , Mean Corpuscular Volume 84, Mean Corpuscular Hemoglobin 27.8, Mean Corpuscular Hemoglobin Concent 33.1, Red Cell Distribution Width 12.2, Platelet Count 487H, Mean Platelet Volume 6.3L, Neutrophils (%) (Auto) 50.4, Lymphocytes (%) (Auto) 32.7, Monocytes (%) (Auto) 13.4H, Eosinophils (%) (Auto) 2.1, Basophils (%) (Auto) 1.3, Sodium Level 137, Potassium Level 3.8, Chloride Level 101, Carbon Dioxide Level 26, Anion Gap 10, Blood Urea Nitrogen 8, Creatinine 0.9, Estimat Glomerular Filtration Rate > 60, Glucose Level 190H, Hemoglobin A1c 12.3H, Calcium Level 8.7, Magnesium Level 1.8, Total Bilirubin 0.2, Aspartate Amino Transf (AST/SGOT) 23, Alanine Aminotransferase (ALT/SGPT) 44, Alkaline Phosphatase 65, Total Protein 7.2, Albumin 2.0L, Globulin 5.2, Albumin/ Globulin Ratio 0.4L Height (Feet): 5 Height (Inches): 10.00 Weight (Pounds): 164 Objective Cv RR Lungs CTA Abd SNT. BS + E No CCe. Lt. foot dressed. PHILIPP LORD Apr 11, 2017 12:16
[2017-04-11] MEDS ORDERED: Tubing IV Secondary IV ONE (14:51)
[2017-04-11 16:00] VITALS: BP 150/70
--- NOTE | 2017-04-11 16:09 | General Progress Note ---
Progress Note Progress Note Surgery: patient seen and examined at bedside earlier today. doing well. no complaints. pain well controlled. no n/v/f/c afebrile, HD stable, labs okay dressings changed and wound clean without drainage. good tissue remains. spoke with patient and family. together decided to salvage as much tissue as possible rather than proceed with midfoot amputation and closure. currently remaining tissues seem viable but only time will tell. plan is to continue with BID and prn dressing changes until good granulation tissue has formed for closure and possible skin graft. this way we can save as much tissue and remaining function as possible. If over the next few weeks areas of tissue are not viable they will be debrided and if necessary may even need further amputation at later time. okay to d/c from surgical standpoint with wound care as described to patient and family. he will follow with me as an outpatient to monitor wound until ready for closure vs grafting. office info given to patient. thank you Virgilio Zabala Apr 11, 2017 16:09
[2017-04-11 20:00] VITALS: BP 151/58
[2017-04-11] MEDS: Levemir Flexpen SUBQ SCH (20:22)
--- NOTE | 2017-04-11 21:16 | Infectious Diseases Prog Note ---
Assessment/Plan Assessment/Plan ASSESSMENT AND PLAN: 1. enterobacter/enterococcus left foot 1st/2nd toe infect wound/gangrene/osteo, strep bacteremia, sepsis, leukocytosis, fevers - s/p debridement and resection left foot 1st/2nd toes - vancomycin and zosyn - check surveillance blood cultures - negative so far - check labs - surgery f/u - if osteo resected then can discharge on oral augmentin 875 mg bid and cipro 500 bid, both for 10 days - if osteo remains then will need iv abx for 6 weeks - will discuss with primary and surgery 2. Diabetes mellitus. 3. Hypertension. 4. Blood sugar and blood pressure treatment per Dr. Floyd. 5. Case discussed Dr. Floyd. 6. Social history is negative. 7. Family history noncontributory 8. Allergies negative. 9. MAR was noted. 10. Case was discussed with RN. 11. Continue treatment per primary consultants. Subjective Constitutional: Denies: fever HEENT: Denies: congestion Respiratory: Denies: shortness of breath Cardiovascular: Denies: chest pain Gastrointestinal/Abdominal: Denies: nausea, vomiting, diarrhea Genitourinary: Denies: dysuria Neurologic: Denies: headache Psychiatric: Denies: depression Skin: Denies: rash Hematologic: Denies: bleeding Musculoskeletal: Denies: pain Allergies: Coded Allergies: No Known Allergies (Unverified , 04/06/17) Objective Vital Signs Last 24 Hour Vital Signs Date Time Temp Pulse Resp B/P (MAP) Pulse Ox O2 Delivery O2 Flow Rate FiO2 04/11/17 20:00 99.3 75 21 151/58 97 Room Air 04/11/17 16:33 97 Room Air 04/11/17 16:00 98.1 82 20 150/70 97 04/11/17 12:34 98 Room Air 04/11/17 12:00 98.4 72 19 151/63 98 04/11/17 09:20 97 Room Air 04/11/17 08:37 76 131/61 04/11/17 08:00 98.2 76 20 131/61 04/11/17 04:00 99.2 76 21 139/66 99 Room Air 04/11/17 00:08 98.3 69 18 140/61 96 Room Air Height (Feet): 5 Height (Inches): 10.00 Weight (Pounds): 164 General Appearance: no acute distress HEENT: normocephalic, atraumatic, anicteric, mucous membranes moist, EOMI, pharynx normal, supple, no JVD Respiratory/Chest: lungs clear, normal breath sounds, no respiratory distress, no accessory muscle use Cardiovascular: normal rate, regular rhythm, no gallop/murmur, no JVD Abdomen: normal bowel sounds, soft, non tender, no organomegaly, non distended Genitourinary: other - no elias Extremities: no cyanosis Skin: no rash 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 Findings are consistent with severe osteomyelitis Rarefaction of the head of the first metatarsal, could also indicate osteomyelitis changes Extensive gas within the plantar soft tissues of the great toe, consistent with infection by gas-forming organism. Absence of the distal aspect of the second distal phalanx, could indicate prior amputation or destruction secondary osteomyelitis. Correlate with clinical history and findings Other findings as noted above Microbiology Date/Time Source Procedure Growth Status 04/08/17 16:05 Blood Blood Culture - Preliminary NO GROWTH AFTER 48 HOURS Resulted 04/06/17 17:49 Bone Gram Stain Pending Resulted 04/06/17 17:49 Surgical Biopsy Culture - Final Enterobacter Cloacae Complex Enterococcus Faecalis Resulted 04/06/17 17:49 Aerobic Culture - Final Enterobacter Cloacae Complex Enterococcus Faecalis Resulted 04/06/17 17:49 Bone Anaerobic Culture - Final NO ANAEROBES ISOLATED Resulted Laboratory Tests Test 04/11/17 05:50 White Blood Count 9.9 K/UL (4.8-10.8) Red Blood Count 4.00 M/UL (4.70-6.10) L Hemoglobin 11.1 G/DL (14.2-18.0) L Hematocrit 33.6 % (42.0-52.0) L Mean Corpuscular Volume 84 FL (80-99) Mean Corpuscular Hemoglobin 27.8 PG (27.0-31.0) Mean Corpuscular Hemoglobin Concent 33.1 G/DL (32.0-36.0) Red Cell Distribution Width 12.2 % (11.6-14.8) Platelet Count 487 K/UL (150-450) H Mean Platelet Volume 6.3 FL (6.5-10.1) L Neutrophils (%) (Auto) 50.4 % (45.0-75.0) Lymphocytes (%) (Auto) 32.7 % (20.0-45.0) Monocytes (%) (Auto) 13.4 % (1.0-10.0) H Eosinophils (%) (Auto) 2.1 % (0.0-3.0) Basophils (%) (Auto) 1.3 % (0.0-2.0) Sodium Level 137 MMOL/L (136-145) Potassium Level 3.8 MMOL/L (3.5-5.1) Chloride Level 101 MMOL/L (98-107) Carbon Dioxide Level 26 MMOL/L (21-32) Anion Gap 10 mmol/L (5-15) Blood Urea Nitrogen 8 mg/dL (7-18) Creatinine 0.9 MG/DL (0.55-1.30) Estimat Glomerular Filtration Rate > 60 mL/min (>60) Glucose Level 190 MG/DL (74-106) H Hemoglobin A1c 12.3 % (4.3-6.0) H Calcium Level 8.7 MG/DL (8.5-10.1) Magnesium Level 1.8 MG/DL (1.8-2.4) Total Bilirubin 0.2 MG/DL (0.2-1.0) Aspartate Amino Transf (AST/SGOT) 23 U/L (15-37) Alanine Aminotransferase (ALT/SGPT) 44 U/L (12-78) Alkaline Phosphatase 65 U/L (46-116) Total Protein 7.2 G/DL (6.4-8.2) Albumin 2.0 G/DL (3.4-5.0) L Globulin 5.2 g/dL Albumin/Globulin Ratio 0.4 (1.0-2.7) L Current Medications Medications (Trade) Dose Ordered Sig/Jorge Route PRN Reason Start Time Stop Time Status Last Admin Dose Admin Acetaminophen (Tylenol) 650 mg Q6H PRN ORAL Mild Pain (Pain Scale 1-3) 04/06/17 18:15 05/06/17 18:14 Acetaminophen/ Hydrocodone Bitart ([place] 10/325) 1 ea Q4H PRN ORAL Severe Pain (Pain Scale 7-10) 11/22/17 18:15 04/13/17 18:14 04/11/17 18:46 Acetaminophen/ Hydrocodone Bitart ([place] 5/325) 1 tab Q4H PRN ORAL Moderate Pain (Pain Scale 4-6) 04/06/17 18:15 04/13/17 18:14 Al Hydroxide/Mg Hydroxide (Mylanta) 15 ml Q6H PRN ORAL DYSPEPSIA 04/06/17 18:15 05/06/17 18:14 Amlodipine Besylate (Norvasc) 10 mg DAILY ORAL 04/08/17 09:00 05/08/17 08:59 04/11/17 08:37 Dextrose (Dextrose 50%) STAT PRN IV Hypoglycemia 04/07/17 11:15 05/07/17 11:14 Diphenhydramine HCl (Benadryl) 12.5 mg Q6H PRN IVP Itching/Pruritis 04/06/17 18:15 05/06/17 18:14 Docusate Sodium (Colace) 100 mg TWICE A DAY ORAL 04/07/17 09:00 05/07/17 08:59 04/11/17 18:48 Enoxaparin Sodium (Lovenox) 40 mg DAILY SUBQ 04/07/17 09:00 05/07/17 08:59 04/11/17 08:41 Hydromorphone HCl (Dilaudid) 0.5 mg Q3H PRN IVP Pain Score 1-3 04/06/17 18:15 04/13/17 18:14 Hydromorphone HCl (Dilaudid) 1 mg Q3H PRN IVP pain score 4-6 04/10/17 13:00 04/13/17 18:14 Hydromorphone HCl (Dilaudid) 2 mg Q3H PRN IVP pain score 7-10 04/06/17 18:15 04/13/17 18:14 Insulin Aspart (NovoLOG) BEFORE MEALS AND HS SUBQ 04/07/17 11:30 05/07/17 11:29 04/11/17 20:23 Insulin Aspart (NovoLOG) 3 units NOVOTIAC SUBQ 04/07/17 11:50 05/07/17 11:49 04/11/17 16:50 Insulin Detemir (Levemir) 20 units BEDTIME SUBQ 04/07/17 21:00 05/07/17 20:59 04/11/17 20:22 Magnesium Hydroxide (Mom) 30 ml BIDPRN PRN ORAL Constipation 04/06/17 18:15 05/06/17 18:14 Metoclopramide HCl (Reglan) 10 mg Q6H PRN IVP Nausea & Vomiting 04/06/17 18:15 05/06/17 18:14 Ondansetron HCl (Zofran) 4 mg Q6H PRN IVP Nausea & Vomiting 04/06/17 18:15 05/06/17 18:14 Piperacillin Sod/ Tazobactam Sod 3.375 gm/Dextrose 55 ml @ 13.75 mls/ hr EVERY 8 HOURS IVPB 04/09/17 22:00 04/14/17 21:59 04/11/17 15:06 Sennosides (Senokot) 8.6 mg BIDPRN PRN ORAL Constipation 2nd line agent 04/06/17 18:15 05/06/17 18:14 04/09/17 09:14 Vancomycin HCl (Vanco rx to dose) 1 ea DAILY PRN MISC Per rx protocol 04/07/17 17:45 05/07/17 17:44 Vancomycin HCl 1 gm/Dextrose 275 ml @ 183.708 mls/hr Q8HR@0200,1000,1800 IVPB 04/09/17 18:00 04/14/17 17:59 04/11/17 18:48 CARISA GLOVER Apr 11, 2017 21:16
[2017-04-12] VITALS: BP 137/74
[2017-04-12] MEDS: Vancomycin 1gm/D5W 275ml IVPB SCH ×6 (01:27→20:33)
[2017-04-12] MEDS: Norco 10mg/325mg tab ORAL PRN ×4 (01:36→20:07)
[2017-04-12 03:57] VITALS: BP 130/65
[2017-04-12] MEDS: Piperacillin/Tazobactam 3.375 GM in D5W 55 ML IVPB SCH ×3 (06:04→22:38)
[2017-04-12] MEDS: NovoLOG Insulin Flexpen SUBQ SCH ×7 (06:08→20:43)
[2017-04-12 08:00] VITALS: BP 148/68
[2017-04-12] MEDS: Docusate 100mg cap ORAL SCH ×2 (08:54→18:25)
[2017-04-12] MEDS: Enoxaparin 40mg Inj SUBQ SCH (09:00)
--- NOTE | 2017-04-12 09:26 | General Progress Note ---
Assessment/Plan Assessment/Plan Gram Poitive Bacteremia Strep Agalactiaea - IV Abx per ID. Bone C+S Enterococci! !! 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 Per ID: enterobacter/enterococcus left foot 1st/2nd toe infect wound/gangrene/ osteo, strep bacteremia, sepsis, leukocytosis, fevers - s/p debridement and resection left foot 1st/2nd toes - vancomycin and zosyn - check surveillance blood cultures - negative so far - check labs - surgery f/u - if osteo resected then can discharge on oral augmentin 875 mg bid and cipro 500 bid, both for 10 days - if osteo remains then will need iv abx for 6 weeks - will discuss with primary and surgery Awaiting ID discussion with GS. 2 D Echo no vegetations!! D. Neuropathy. Has D. Nephropathy with proteinuria. High risk for ESRD!. PVD - check Duplex. Needs SNF? Subjective Allergies: Coded Allergies: No Known Allergies (Unverified , 04/06/17) Subjective No new c/o. Consuming non diabetic food from home? Had Foot dressing changed by Dr. Zabala. Denies feet + hand paresthesias?? Objective Last 24 Hour Vital Signs Date Time Temp Pulse Resp B/P (MAP) Pulse Ox O2 Delivery O2 Flow Rate FiO2 04/12/17 08:59 81 134/62 04/12/17 08:00 98.2 80 17 148/68 98 Room Air 04/12/17 03:57 97.5 68 20 130/65 97 Room Air 04/12/17 00:00 98.9 78 21 137/74 100 Room Air 04/11/17 20:00 99.3 75 21 151/58 97 Room Air 04/11/17 16:33 97 Room Air 04/11/17 16:00 98.1 82 20 150/70 97 04/11/17 12:34 98 Room Air 04/11/17 12:00 98.4 72 19 151/63 98 Height (Feet): 5 Height (Inches): 10.00 Weight (Pounds): 164 Objective Cv RR Lungs CTA Abd SNT. BS + E No CCe. Lt. foot dressed. PHILIPP LORD Apr 12, 2017 09:26
--- NOTE | 2017-04-12 10:59 | General Progress Note ---
Progress Note Progress Note Surgery: doing well. no complaints. pain well controlled. no n/v/f/c. stable afebrile, HD stable, wound stable. osteo has been resected. wound clean. no signs of active infection. discussed options with patient and family and decided to continue with wound care for a few weeks. may be possible to salvage as much tissue as possible before going with more aggressive amputation. -okay to d/c home -Rx written for pain meds, abx, and stool softeners. -wound care instructions given -office appointment given -patient has established PCP and will see PCP soon after discharge to manage DM and medical care. Virgilio Zabala Apr 12, 2017 10:59
[2017-04-12] MEDS ORDERED: LEVEMIR FL100 UNIT/1 SUBQ (11:13)
[2017-04-12] MEDS ORDERED: COLACE100 MG ORAL (11:13)
[2017-04-12] MEDS ORDERED: NOVOLOG100 UNITS1 SUBQ ×2 (11:13)
[2017-04-12] MEDS ORDERED: NORVASC10 MG ORAL (11:13)
[2017-04-12] MEDS ORDERED: CIPRO500 MG/51 PO (11:18)
[2017-04-12] MEDS ORDERED: AUGMENTIN 875-1 EAC1 ORAL (11:18)
[2017-04-12] MEDS ORDERED: IBUPROFEN600 MG ORAL (11:19)
[2017-04-12] MEDS ORDERED: ACETAMINOPHEN-1 EAC1 ORAL (11:20)
[2017-04-12 11:45] VITALS: BP 150/67
--- NOTE | 2017-04-12 12:27 | Diagnostic Imaging Report ---
APPROVED REPORT CPT Code: 95968 Symptoms Comments: Left foot ulcer R/O PAD VELOCITY MEASUREMENTS AND DOPPLER WAVEFORM ANALYSIS RIGHTcm/secWaveformSeverityLEFTcm/secWaveformSeverity Com Fem Art. 43BiphasicCom Fem Art. 105Biphasic Prof Fem Art. 20BiphasicProf Fem Art. 100Biphasic Fem Art Prox. 46BiphasicFem Art Prox. 81Monophasic Fem Art Mid. 51BiphasicFem Art Mid. 53Monophasic Fem Art Dist. 68MonophasicFem Art Dist. 153Monophasic Pop Art Prox. 29MonophasicPop Art Prox. 31Monophasic MATERIAL CUTTER Prox. 42MonophasicPTA Prox. 56Monophasic Per Art Prox. 36MonophasicPer Art Prox. 48Monophasic ENOC Prox. 36MonophasicATA Prox. 51Monophasic RIGHT LEG: Common femoral artery waveform analysis is within normal limits at rest. Color flow duplex sonography reveals calcification throughout the superficial femoral and popliteal arteries. There is no evidence of stenosis or occlusion within these segments. The tibioperoneal trunk was patent. The posterior tibial, anterior tibial and dorsalis pedis arteries are also patent. Doppler tibial artery waveform analysis is monophasic, consistent with moderate ischemia at rest. LEFT LEG: Common femoral artery waveform analysis is within normal limits at rest. Color flow duplex sonography reveals calcification throughout the superficial femoral and popliteal arteries. A mild (20%-30%) stenosis is seen in the distal superficial femoral artery. There is no evidence of occlusion within these segments. The tibioperoneal trunk was patent. The posterior tibial, anterior tibial and dorsalis pedis arteries are also patent. Doppler tibial artery waveform analysis is monophasic, consistent with moderate to severe ischemia at rest.
[2017-04-12 16:00] VITALS: BP 147/68
[2017-04-12] MEDS: Levemir Flexpen SUBQ SCH (20:41)
--- NOTE | 2017-04-12 21:00 | Infectious Diseases Prog Note ---
Assessment/Plan Assessment/Plan ASSESSMENT AND PLAN: 1. enterobacter/enterococcus left foot 1st/2nd toe infect wound/gangrene/osteo, strep bacteremia, sepsis, leukocytosis, fevers - s/p debridement and resection left foot 1st/2nd toes - vancomycin and zosyn - check surveillance blood cultures - negative so far - check labs - surgery f/u - osteo resected per surgery note thus can discharge on oral augmentin 875 mg bid and cipro 500 bid, both for 10 days - scripts written by surgery - d/w with Dr. Harris 2. Diabetes mellitus. 3. Hypertension. 4. Blood sugar and blood pressure treatment per Dr. Floyd. 5. Case discussed Dr. Floyd. 6. Social history is negative. 7. Family history noncontributory 8. Allergies negative. 9. MAR was noted. 10. Case was discussed with RN. 11. Continue treatment per primary consultants. Subjective Constitutional: Denies: fever HEENT: Denies: congestion Respiratory: Denies: shortness of breath Cardiovascular: Denies: chest pain Gastrointestinal/Abdominal: Denies: nausea, vomiting, diarrhea Genitourinary: Denies: dysuria, hematuria Neurologic: Denies: headache, numbness Psychiatric: Denies: depression Skin: Denies: rash Hematologic: Denies: bleeding Musculoskeletal: Denies: pain Allergies: Coded Allergies: No Known Allergies (Unverified , 04/06/17) Objective Vital Signs Last 24 Hour Vital Signs Date Time Temp Pulse Resp B/P (MAP) Pulse Ox O2 Delivery O2 Flow Rate FiO2 04/12/17 16:00 98.1 76 18 147/68 97 Room Air 04/12/17 15:50 98.2 04/12/17 11:45 98.2 71 18 150/67 96 Room Air 04/12/17 08:59 81 134/62 04/12/17 08:00 98.2 80 17 148/68 98 Room Air 04/12/17 03:57 97.5 68 20 130/65 97 Room Air 04/12/17 00:00 98.9 78 21 137/74 100 Room Air Height (Feet): 5 Height (Inches): 10.00 Weight (Pounds): 164 General Appearance: no acute distress HEENT: normocephalic, atraumatic, anicteric, mucous membranes moist Respiratory/Chest: lungs clear, normal breath sounds, no respiratory distress, no accessory muscle use Cardiovascular: normal rate, regular rhythm, no gallop/murmur, no JVD Abdomen: normal bowel sounds, soft, non tender, no organomegaly, non distended Genitourinary: other - no elias Extremities: no cyanosis, other Skin: no rash 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 Findings are consistent with severe osteomyelitis Rarefaction of the head of the first metatarsal, could also indicate osteomyelitis changes Extensive gas within the plantar soft tissues of the great toe, consistent with infection by gas-forming organism. Absence of the distal aspect of the second distal phalanx, could indicate prior amputation or destruction secondary osteomyelitis. Correlate with clinical history and findings Other findings as noted above Microbiology Date/Time Source Procedure Growth Status 04/08/17 16:05 Blood Blood Culture - Preliminary NO GROWTH AFTER 72 HOURS Resulted 04/06/17 17:49 Bone Gram Stain - Final Complete 04/06/17 17:49 Surgical Biopsy Culture - Final Enterobacter Cloacae Complex Enterococcus Faecalis Complete 04/06/17 17:49 Aerobic Culture - Final Enterobacter Cloacae Complex Enterococcus Faecalis Complete 04/06/17 17:49 Bone Anaerobic Culture - Final NO ANAEROBES ISOLATED Complete Labs Test 04/10/17 18:17 04/11/17 05:50 Urine Color Pale yellow Urine Appearance Slightly cloudy Urine pH 6 (4.5-8.0) Urine Specific [place] 1.015 (1.005-1.035) Urine Protein 3+ (NEGATIVE) Urine Glucose (UA) 1+ (NEGATIVE) Urine Ketones Negative (NEGATIVE) Urine Occult Blood 2+ (NEGATIVE) Urine Nitrite Negative (NEGATIVE) Urine Bilirubin Negative (NEGATIVE) Urine Urobilinogen Normal MG/DL (0.0-1.0) Urine Leukocyte Esterase Negative (NEGATIVE) Urine RBC 5-10 /HPF (0 - 0) Urine WBC 0-2 /HPF (0 - 0) Urine Squamous Epithelial Cells Occasional /LPF Urine Bacteria Few /HPF (NONE) Urine Granular Casts 0-2 /LPF (NONE) White Blood Count 9.9 K/UL (4.8-10.8) Red Blood Count 4.00 M/UL (4.70-6.10) Hemoglobin 11.1 G/DL (14.2-18.0) Hematocrit 33.6 % (42.0-52.0) Mean Corpuscular Volume 84 FL (80-99) Mean Corpuscular Hemoglobin 27.8 PG (27.0-31.0) Mean Corpuscular Hemoglobin Concent 33.1 G/DL (32.0-36.0) Red Cell Distribution Width 12.2 % (11.6-14.8) Platelet Count 487 K/UL (150-450) Mean Platelet Volume 6.3 FL (6.5-10.1) Neutrophils (%) (Auto) 50.4 % (45.0-75.0) Lymphocytes (%) (Auto) 32.7 % (20.0-45.0) Monocytes (%) (Auto) 13.4 % (1.0-10.0) Eosinophils (%) (Auto) 2.1 % (0.0-3.0) Basophils (%) (Auto) 1.3 % (0.0-2.0) Sodium Level 137 MMOL/L (136-145) Potassium Level 3.8 MMOL/L (3.5-5.1) Chloride Level 101 MMOL/L (98-107) Carbon Dioxide Level 26 MMOL/L (21-32) Anion Gap 10 mmol/L (5-15) Blood Urea Nitrogen 8 mg/dL (7-18) Creatinine 0.9 MG/DL (0.55-1.30) Estimat Glomerular Filtration Rate > 60 mL/min (>60) Glucose Level 190 MG/DL (74-106) Hemoglobin A1c 12.3 % (4.3-6.0) Calcium Level 8.7 MG/DL (8.5-10.1) Magnesium Level 1.8 MG/DL (1.8-2.4) Total Bilirubin 0.2 MG/DL (0.2-1.0) Aspartate Amino Transf (AST/SGOT) 23 U/L (15-37) Alanine Aminotransferase (ALT/SGPT) 44 U/L (12-78) Alkaline Phosphatase 65 U/L (46-116) Total Protein 7.2 G/DL (6.4-8.2) Albumin 2.0 G/DL (3.4-5.0) Globulin 5.2 g/dL Albumin/Globulin Ratio 0.4 (1.0-2.7) Current Medications Medications (Trade) Dose Ordered Sig/Jorge Route PRN Reason Start Time Stop Time Status Last Admin Dose Admin Acetaminophen (Tylenol) 650 mg Q6H PRN ORAL Mild Pain (Pain Scale 1-3) 04/06/17 18:15 05/06/17 18:14 Acetaminophen/ Hydrocodone Bitart ([place] 10/325) 1 ea Q4H PRN ORAL Severe Pain (Pain Scale 7-10) 04/06/17 18:15 04/13/17 18:14 04/12/17 14:51 Acetaminophen/ Hydrocodone Bitart ([place] 5/325) 1 tab Q4H PRN ORAL Moderate Pain (Pain Scale 4-6) 04/06/17 18:15 04/13/17 18:14 Al Hydroxide/Mg Hydroxide (Mylanta) 15 ml Q6H PRN ORAL DYSPEPSIA 04/06/17 18:15 05/06/17 18:14 Amlodipine Besylate (Norvasc) 10 mg DAILY ORAL 04/08/17 09:00 05/08/17 08:59 04/12/17 08:59 Dextrose (Dextrose 50%) STAT PRN IV Hypoglycemia 04/07/17 11:15 05/07/17 11:14 Diphenhydramine HCl (Benadryl) 12.5 mg Q6H PRN IVP Itching/Pruritis 04/06/17 18:15 05/06/17 18:14 Docusate Sodium (Colace) 100 mg TWICE A DAY ORAL 04/07/17 09:00 05/07/17 08:59 04/12/17 18:25 Enoxaparin Sodium (Lovenox) 40 mg DAILY SUBQ 04/07/17 09:00 05/07/17 08:59 04/12/17 09:00 Hydromorphone HCl (Dilaudid) 0.5 mg Q3H PRN IVP Pain Score 1-3 04/06/17 18:15 04/13/17 18:14 Hydromorphone HCl (Dilaudid) 1 mg Q3H PRN IVP pain score 4-6 04/10/17 13:00 04/13/17 18:14 Hydromorphone HCl (Dilaudid) 2 mg Q3H PRN IVP pain score 7-10 04/06/17 18:15 04/13/17 18:14 Insulin Aspart (NovoLOG) BEFORE MEALS AND HS SUBQ 04/07/17 11:30 05/07/17 11:29 04/12/17 20:43 Insulin Aspart (NovoLOG) 3 units NOVOTIAC SUBQ 04/07/17 11:50 05/07/17 11:49 04/12/17 17:23 Insulin Detemir (Levemir) 20 units BEDTIME SUBQ 04/07/17 21:00 05/07/17 20:59 04/12/17 20:41 Magnesium Hydroxide (Mom) 30 ml BIDPRN PRN ORAL Constipation 04/06/17 18:15 05/06/17 18:14 Metoclopramide HCl (Reglan) 10 mg Q6H PRN IVP Nausea & Vomiting 04/06/17 18:15 05/06/17 18:14 Ondansetron HCl (Zofran) 4 mg Q6H PRN IVP Nausea & Vomiting 04/06/17 18:15 05/06/17 18:14 Piperacillin Sod/ Tazobactam Sod 3.375 gm/Dextrose 55 ml @ 13.75 mls/ hr EVERY 8 HOURS IVPB 04/09/17 22:00 04/14/17 21:59 04/12/17 17:21 Sennosides (Senokot) 8.6 mg BIDPRN PRN ORAL Constipation 2nd line agent 04/06/17 18:15 05/06/17 18:14 04/09/17 09:14 Vancomycin HCl (Vanco rx to dose) 1 ea DAILY PRN MISC Per rx protocol 04/07/17 17:45 05/07/17 17:44 Vancomycin HCl 1 gm/Dextrose 275 ml @ 183.708 mls/hr Q8HR@0200,1000,1800 IVPB 04/09/17 18:00 04/14/17 17:59 04/12/17 20:33 CARISA GLOVER Apr 12, 2017 21:00
[2017-04-13] VITALS: BP 140/80
[2017-04-13] MEDS: Vancomycin 1gm/D5W 275ml IVPB SCH ×4 (01:43→10:00)
[2017-04-13 04:00] VITALS: BP 138/69
[2017-04-13] MEDS: Piperacillin/Tazobactam 3.375 GM in D5W 55 ML IVPB SCH (05:32)
[2017-04-13] MEDS: NovoLOG Insulin Flexpen SUBQ SCH ×2 (06:02→06:04)
--- NOTE | 2017-04-13 07:00 | General Progress Note ---
Assessment/Plan Assessment/Plan Gram Poitive Bacteremia Strep Agalactiaea - IV Abx per ID. Bone C+S Enterococci! !! 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 Per ID: enterobacter/enterococcus left foot 1st/2nd toe infect wound/gangrene/ osteo, strep bacteremia, sepsis, leukocytosis, fevers - s/p debridement and resection left foot 1st/2nd toes - vancomycin and zosyn - check surveillance blood cultures - negative so far - check labs - surgery f/u - if osteo resected then can discharge on oral augmentin 875 mg bid and cipro 500 bid, both for 10 days - if osteo remains then will need iv abx for 6 weeks - will discuss with primary and surgery Per GS + ID pt. can be safely dc'ed with oral abx. 2 D Echo no vegetations!! D. Neuropathy. Has D. Nephropathy with proteinuria. High risk for ESRD!. PVD - check Duplex. Needs SNF? Subjective Allergies: Coded Allergies: No Known Allergies (Unverified , 04/06/17) Subjective No new c/o.All noted. Care DW Dr. Zabala and Kun. Objective Last 24 Hour Vital Signs Date Time Temp Pulse Resp B/P (MAP) Pulse Ox O2 Delivery O2 Flow Rate FiO2 04/13/17 04:00 95 Room Air 04/13/17 04:00 97.5 70 19 138/69 95 04/13/17 00:00 96 Room Air 04/13/17 00:00 97.8 70 18 140/80 96 04/12/17 16:00 98.1 76 18 147/68 97 Room Air 04/12/17 15:50 98.2 04/12/17 11:45 98.2 71 18 150/67 96 Room Air 04/12/17 08:59 81 134/62 04/12/17 08:00 98.2 80 17 148/68 98 Room Air Laboratory Tests 04/13/17 05:45: White Blood Count [Pending], Red Blood Count [Pending], Hemoglobin [Pending], Hematocrit [Pending], Mean Corpuscular Volume [Pending], Mean Corpuscular Hemoglobin [Pending], Mean Corpuscular Hemoglobin Concent [Pending], Red Cell Distribution Width [Pending], Platelet Count [Pending], Mean Platelet Volume [ Pending], Neutrophils (%) (Auto) [Pending], Lymphocytes (%) (Auto) [Pending], Monocytes (%) (Auto) [Pending], Eosinophils (%) (Auto) [Pending], Basophils (%) (Auto) [Pending], Sodium Level [Pending], Potassium Level [Pending], Chloride Level [Pending], Carbon Dioxide Level [Pending], Blood Urea Nitrogen [Pending], Creatinine [Pending], Estimat Glomerular Filtration Rate [Pending], Glucose Level [Pending], Calcium Level [Pending] Height (Feet): 5 Height (Inches): 10.00 Weight (Pounds): 164 Objective Cv RR Lungs CTA Abd SNT. BS + E No CCe. Lt. foot dressed. PHILIPP LORD Apr 13, 2017 07:00
[2017-04-13 07:07] LABS: BASOPHILS % (AUTO) 1.2 % (0.0-2.0); EOSINOPHILS % (AUTO) 0.6 % (0.0-3.0); LYMPHOCYTES % (AUTO) 29.5 % (20.0-45.0); MEAN CORPUSCULAR HEMOGLOBIN 27.6 PG (27.0-31.0); MEAN CORPUSCULAR HGB CONC 32.5 G/DL (32.0-36.0); MEAN CORPUSCULAR VOLUME 85 FL (80-99); MEAN PLATELET VOLUME 6.3 FL (6.5-10.1); MONOCYTES % (AUTO) 13.7 % (1.0-10.0); PLATELET COUNT 524 K/UL (150-450); RED BLOOD COUNT 4.24 M/UL (4.70-6.10); RED CELL DISTRIBUTION WIDTH 12.6 % (11.6-14.8); WHITE BLOOD COUNT 10.3 K/UL (4.8-10.8)
[2017-04-13 07:20] LABS: ANION GAP 6 mmol/L (5-15); CALCIUM 9.1 MG/DL (8.5-10.1); CARBON DIOXIDE 31 MMOL/L (21-32); CHLORIDE 101 MMOL/L (98-107); CREATININE 1.7 MG/DL (0.55-1.30); GLOMERULAR FILTRATION RATE 41.2 mL/min (>60); POTASSIUM 4.2 MMOL/L (3.5-5.1); SODIUM 138 MMOL/L (136-145)
[2017-04-13 08:00] VITALS: BP 136/64
[2017-04-13 08:16] VITALS: BP 136/64
[2017-04-13] MEDS: Docusate 100mg cap ORAL SCH (08:16)
[2017-04-13] MEDS: Norco 10mg/325mg tab ORAL PRN (08:16)
[2017-04-13] MEDS: Enoxaparin 40mg Inj SUBQ SCH (08:18)
[2017-04-13] MEDS ORDERED: NS 500ML ONE (11:15)
[2017-04-13] MEDS ORDERED: Tubing IV Secondary IV ONE (11:15)
--- NOTE | 2017-04-15 08:23 | Discharge Summary ---
Discharge Summary Hospital Course Date of Admission Apr 06, 2017 at 19:36 Date of Discharge Apr 13, 2017 at 11:16 Admitting Diagnosis INFECTED FOOT(LEFT) HPI Jas Byunm is a 61 year old male who was admitted on Apr 06, 2017 at 19:36 for Left Foot Heel Infection Hospital Course [id number] Discharge Discharge Disposition Patient was discharged to Home (01) Discharge Diagnoses: Brittany Ramirez NP Apr 15, 2017 08:23
--- NOTE | 2017-04-15 14:01 | Discharge Summary 2 SIG ---
DATE OF ADMISSION: 04/06/2017 DATE OF DISCHARGE: 04/13/2017 CONSULTANTS: 1. Virgilio Zabala M.D. 2. Conor Tristan M.D. BRIEF HOSPITAL COURSE: The patient is a 61-year-old male, who presented to the ER complaining of worsening pain and foul odour from left foot with difficulty ambulating. He had injury 2 months ago while at work an engine fell onto his foot and since that injury, he had pain. A few weeks ago, he noted worsening area of necrosis. He has gone without any medical evaluation since that time for the past two weeks. There was a foul odor and drainage and discharge coming out from the wounds. He began to have difficulty ambulating and pain has worsened. He came to ED for evaluation. Workup at ED showed leukocytosis of 16 and lactic acid was 1.3. He was having low-grade fever and was tachycardic. On examination, he had wet gangrene of the left distal foot including great toe with purulent discharge and extensive necrosis. Left foot x-ray showed extensive destruction of the first proximal and distal phalanx. Findings consistent with severe osteomyelitis. Surgical evaluation was done and on 04/06/2017, the patient underwent debridement of the left foot with amputation of the first and second toes by Dr Zabala. Postoperatively, he was seen by Infectious Disease specialist and was given vancomycin and Zosyn, pending culture results. Blood culture showed growth of Streptococcus group B and bone culture with Enterobacter. Postoperatively, he was given dressing changes by the surgeon. There was good granulation tissue forming. No drainage. Wound was cleaned without signs of worsening infection. However, third toe still questionable if it can be salvaged. The patient and family wants to salvage as much tissue as possible rather than proceed with midfoot amputation; however, currently remaining tissue seem viable, but only time will tell. He was advised to continue with b.i.d. and p.r.n. dressings until good granulation tissues form for full closure and possible skin graft. They were advised over the next few weeks, if the areas of tissue were not viable, it will be debrided and if necessary may even further lead to amputation at a later time. He was cleared for discharge by surgery. Surveillance blood cultures done were negative. Osteomyelitis was resected per Surgery. The patient was then discharged on oral Augmentin 875 mg b.i.d. and Cipro 500 mg b.i.d. for 10 days. Echocardiogram did not show any vegetation. The patient has diabetic neuropathy and diabetic nephropathy with proteinuria was cautioned against high risk for end-stage renal disease. He was eventually discharged home. FINAL DIAGNOSES: 1. Acute osteomyelitis, left foot, status post debridement and amputation of the first and second toes. 2. Gram-positive bacteremia with strep agalactiae. 3. Uncontrolled undiagnosed diabetes mellitus. 4. Enterobacter/Enterococcus, left foot first and second toe gangrene with osteomyelitis, strep bacteremia, sepsis, leukocytosis and fever. 5. Diabetic neuropathy. 6. Diabetic nephropathy with proteinuria. DISPOSITION: The patient was discharged home. DISCHARGE MEDICATIONS: Continue Augmentin and ciprofloxacin b.i.d. for 10 days. DISCHARGE INSTRUCTIONS: Follow up with PCP to manage diabetes and medical care. Follow up with Dr. Zabala to monitor wound until ready for closure versus grafting. Ml Floyd M.D. I have been assigned to dictate discharge summary on this account and I was not involved in the patient's management. Brittany Ramirez N.P. DR: WIL JOB#: [id number] CC: ÁNGEL
--- NOTE | 2017-04-16 17:58 | Cardiology Report ---
APPROVED REPORT EKG Measurement Heart [id number] Sinus tachycardia Possible Left atrial enlargement Borderline ECG
== END 2017-04-13 11:16 | disposition home or self-care (01) | DRG 305 ==
LOC: EMR 13:25 → EDBEDREQ 14:03 → SUR 16:18 → 4E 16:55
PROC: 0YBN0ZZ Excision of Left Foot, Open Approach (ICD-10-PCS; 2017-04-06)
PROC: 0Y6N0ZB Detachment at Left Foot, Partial 2nd Ray, Open Approach (ICD-10-PCS; 2017-04-06)
PROC: 0Y6N0Z9 Detachment at Left Foot, Partial 1st Ray, Open Approach (ICD-10-PCS; principal; 2017-04-06 16:00)
DX: M86.172 Other acute osteomyelitis, left ankle and foot (principal); M72.6 Necrotizing fasciitis; E11.21 Type 2 diabetes mellitus with diabetic nephropathy; E11.52 Type 2 diabetes mellitus with diabetic peripheral angiopathy with gangrene; I96 Gangrene, not elsewhere classified; E11.40 Type 2 diabetes mellitus with diabetic neuropathy, unspecified; E11.65 Type 2 diabetes mellitus with hyperglycemia; B95.2 Enterococcus as the cause of diseases classified elsewhere; B95.4 Other streptococcus as the cause of diseases classified elsewhere; X58.XXXS Exposure to other specified factors, sequela; I10 Essential (primary) hypertension
CPT/HCPCS: 36415; 80048; 80053; 80202; 81001; 82043; 82150; 82553; 82962; 83036; 83605; 83690; 83735; 84100; 85025; 85610; 87040; 87070; 87075; 87181; 87205; 93005; 93306; 93925; 94003; 94150; 99285; J1815; J2250; J2405; S0077; S5561

== ENCOUNTER 2017-10-24 11:30 | Emergency (ER) | payer MEDICAID ==
[~2017-10-24] VITALS: Ht 177.8 cm; Wt 81.6 kg
[~2017-10-24 11:30] MED LIST changes: +ACETAMINOPHEN-1 EAC1 ORAL; +AUGMENTIN 875-1 EAC1 ORAL; +CIPRO500 MG/51 PO; +COLACE100 MG ORAL; +IBUPROFEN600 MG ORAL; +LEVEMIR FL100 UNIT/1 SUBQ; +NKM; +NORVASC10 MG ORAL; +NOVOLOG100 UNITS1 SUBQ; -NS Irrig 1000ml ONE; -Sterile Water Irrig 1000ml IRRIG ONE
[2017-10-24 11:56] VITALS: BP 128/64
--- NOTE | 2017-10-24 12:07 | Emergency Room Report ---
History of Present Illness General Chief Complaint: Animal Bite Source: Patient, Medical Record Present Illness HPI 62-year-old male presents to the emergency department complaining of 8 out of 10 in severity localized pain to the right index finger since yesterday. Patient status post cat bite last night. Patient states that since last night his finger has become red, tender and has some swelling. Patient also reports erythema to the dorsal aspect of the right hand that radiates up the right forearm. Patient denies fevers or chills per patient does not know when his last tetanus vaccination was. Denies bleeding at this time. Patient states that he initially clean the bite with hydrogen peroxide. Patient states that the animal that bit him is his personal cat and that it is up-to-date with vaccinations. Denies numbness tingling or loss of sensation or gross motor movements of the extremities, incontinence of bowel or bladder. Denies CP, Palpitations, LOC, AMS, dizziness, Changes in Vision, weakness or a sudden severe headache. Allergies: Coded Allergies: No Known Allergies (Unverified , 04/06/17) Patient History Past Medical History: see triage record Past Surgical History: none Pertinent Family History: none Reviewed Nursing Documentation: PMH: Agreed; PSxH: Agreed Nursing Documentation-PMH Past Medical History: No History, Except For Hx Hypertension: Yes Review of Systems All Other Systems: negative except mentioned in HPI Physical Exam Vital Signs Date Time Temp Pulse Resp B/P (MAP) Pulse Ox O2 Delivery O2 Flow Rate FiO2 10/24/17 11:46 98.2 79 18 131/71 96 Room Air 98.2 Sp02 EP Interpretation: reviewed, normal General Appearance: no apparent distress, alert, GCS 15, non-toxic Head: normocephalic, atraumatic ENT: hearing grossly normal, normal voice, other - no swelling of the lips or tongue Neck: full range of motion Respiratory: lungs clear, normal breath sounds, speaking full sentences Cardiovascular #1: regular rate, rhythm, normal capillary refill Musculoskeletal: back normal, gait/station normal, normal range of motion, tender - right index finger- dorsally Neurologic: alert, oriented x3, responsive, motor strength/tone normal, sensory intact, speech normal, grossly normal Psychiatric: judgement/insight normal Skin: warm/dry, well hydrated, other - Puncture wound noted to the disal right index finger, erythema streaking distal to the right elbow. Lymphatic: no adenopathy Medical Decision Making PA Attestation Dr. Han is my supervising Physician whom patient management has been discussed with. Diagnostic Impression: Primary Impression: Cat bite of right hand including fingers with infection Qualified Codes: S61.451A - Open bite of right hand, initial encounter; S61.259A - Open bite of unspecified finger without damage to nail, initial encounter; L08.9 - Local infection of the skin and subcutaneous tissue, unspecified; W55.01XA - Bitten by cat, initial encounter ER Course 62-year-old male presents to the emergency department complaining of 8 out of 10 in severity localized pain to the right index finger since yesterday. Patient status post cat bite last night. Patient states that since last night his finger has become red, tender and has some swelling. Patient also reports erythema to the dorsal aspect of the right hand that radiates up the right forearm. Patient denies fevers or chills per patient does not know when his last tetanus vaccination was. Denies bleeding at this time. Patient states that he initially clean the bite with hydrogen peroxide. Patient states that the animal that bit him is his personal cat and that it is up-to-date with vaccinations. Denies numbness tingling or loss of sensation or gross motor movements of the extremities, incontinence of bowel or bladder. Denies CP, Palpitations, LOC, AMS, dizziness, Changes in Vision, weakness or a sudden severe headache. . Pt. presents to the ED c/o dog bite 4 days ago, tetanus not up to date, rabies on animal is UTD Ddx considered but are not limited to Cellulitis, rabies, fracture, neurovascular compromise of extremity. Vital signs: are WNL, pt. is afebrile H&PE are most consistent with Cat bite-infected. Puncture wound noted to the distal right index finger, erythema streaking distal to the right elbow. ORDERS: -Wound care ED INTERVENTIONS: -Tetanus vaccination is administered. -IV ampicillin/sublactam 3g Discussed with patient that he has to keep a close eye on his arm for worsening of symptoms at this time he will be sent home with oral antibiotics however he needs to return immediately to the emergency department with worsening of his symptoms or new symptoms such as fevers, chills, moderate swelling. Discussed with him that in this case he would require more IV antibiotics. Due to the nature of this injury I discussed with him that he needs to follow-up with his PCP within 72 hours DISCHARGE: At this time pt. is stable for d/c to home. Will provide printed patient care instructions, and any necessary prescriptions. Care plan and follow up instructions have been discussed with the patient prior to discharge. Last Vital Signs Date Time Temp Pulse Resp B/P (MAP) Pulse Ox O2 Delivery O2 Flow Rate FiO2 10/24/17 11:46 98.2 79 18 131/71 96 Room Air 98.2 Disposition: HOME, SELF-CARE Condition: Stable Scripts Acetaminophen* (TYLENOL EXTRA STRENGTH*) 500 Mg Tablet 500 MG ORAL Q6H, #20 TAB 0 Refills Prov: Carmen Martin 10/24/17 Amoxicillin/Potassium Clav 875-125* (AUGMENTIN 875-125 TABLET*) 1 Each Tablet 1 TAB ORAL TWICE A DAY for 10 Days, #20 TAB Prov: Carmen Martin 10/24/17 Patient Instructions: Animal Bite Additional Instructions: Take medications as directed. Follow up with a Primary Care Provider in 3-5 days, even if your symptoms have resolved. --Please review list of primary care clinics, if you do not already have a primary care provider Return sooner to ED if new symptoms occur, or current symptoms become worse. - Please note that this Emergency Department Report was dictated using [employer] consultant technology software, occasionally this can lead to erroneous entry secondary to interpretation by the dictation equipment. Carmen Martin Oct 24, 2017 12:07
[2017-10-24] MEDS ORDERED: Tetanus/Diptheria/Pertussis Vaccine 0.5ml Syr IM ONE (12:30)
[2017-10-24] MEDS ORDERED: Unasyn 3gm Inj IV ONE (12:30)
[2017-10-24 14:15] VITALS: BP 132/65
[2017-10-24] MEDS ORDERED: AUGMENTIN 875-1 EAC1 ORAL (14:16)
[2017-10-24] MEDS ORDERED: TYLENOL EXTRA500 MG ORAL (14:16)
[2017-10-24 14:23] VITALS: BP 132/65
== END 2017-10-24 14:26 | disposition home or self-care (01) ==
LOC: EMR 12:23
DX: S61.230A Puncture wound without foreign body of right index finger without damage to nail, initial encounter (principal); W55.01XA Bitten by cat, initial encounter; Y92.9 Unspecified place or not applicable; I10 Essential (primary) hypertension; Z23 Encounter for immunization
CPT/HCPCS: 90471; 90715; 96374; 96375; 99284; J0295

== ENCOUNTER 2017-11-08 15:30 | Emergency (ER) | payer MEDICAID ==
[~2017-11-08] VITALS: Ht 177.8 cm; Wt 81.6 kg
[~2017-11-08 15:30] MED LIST changes: +TYLENOL EXTRA500 MG ORAL
--- NOTE | 2017-11-08 15:50 | Emergency Room Report ---
History of Present Illness General Chief Complaint: Wound Recheck/Suture Removal Source: Patient (Carmen Martin) Source: Patient (Melvin Fuentes MD) Present Illness HPI 62-year-old male presents ED for evaluation. States that there is pain and swelling to his right index finger. Was seen here last week for a cat bite to his right index finger. Was discharged on antibiotics. States she completed the antibiotic prescription but states pain and swelling is gotten worse. Pain is throbbing, 7 out of 10, nonradiating. Denies fevers or chills. Denies any discharge. No other aggravating relieving factors. Denies any other associated symptoms (Melvin Fuentes MD) Allergies: Coded Allergies: No Known Allergies (Unverified , 04/06/17) Patient History Past Medical History: none Past Surgical History: none Pertinent Family History: none Social History: Denies: smoking, alcohol use, drug use Immunizations: UTD Reviewed Nursing Documentation: PMH: Agreed; PSxH: Agreed (Melvin Fuentes MD) Nursing Documentation-PMH Past Medical History: No History, Except For Hx Hypertension: Yes Hx Diabetes: Yes - DM II (Carmen Martin) Review of Systems All Other Systems: negative except mentioned in HPI (Melvin Fuentes MD) Physical Exam Vital Signs Date Time Temp Pulse Resp B/P (MAP) Pulse Ox O2 Delivery O2 Flow Rate FiO2 11/08/17 15:35 98.0 78 20 181/76 98 Room Air 98.1 (Carmen Martin) Sp02 EP Interpretation: reviewed, normal General Appearance: no apparent distress, alert, GCS 15, non-toxic Head: normocephalic Eyes: bilateral eye normal inspection, bilateral eye PERRL ENT: normal ENT inspection Neck: normal inspection Respiratory: normal inspection Cardiovascular #1: normal inspection Gastrointestinal: normal inspection Rectal: deferred Genitourinary: no CVA tenderness Musculoskeletal: back normal, gait/station normal, normal range of motion, non- tender, swelling - R index finger Neurologic: alert, oriented x3, responsive, motor strength/tone normal, sensory intact, speech normal Psychiatric: normal inspection Skin: other - fluctuance to distal aspect R index finger. induration/swelling to R index finger Lymphatic: normal inspection (Melvin Fuentes MD) Procedures Incision and Drainage Incision and Drainage : Consent: Written Blade Size: 11 I & D Procedure: betadine prep, sterile drapes applied, sterile dressing applied, gauze wick placed Wound Location: other - R index finger Wound's Depth, Shape: other - felon Wound Explored: purulent discharge expressed Anesthesia: Lidocaine w/ Epi Splint Applied?: No Sling Applied?: No Patient Tolerated: Well Complications: None (Mevlin Fuentes MD) Medical Decision Making Diagnostic Impression: Primary Impression: Felon of finger Additional Impression: Encounter for wound re-check ER Course Hospital Course 62-year-old male presents ED with pain and swelling to right index finger. Status post cat bite. On antibiotics differential - abscess, cellulitis, paronychia, felon Clinical course Patient placed on stretcher. After initial history, physical exam reveals male in no acute distress. There is significant induration and swelling to the right index finger. Some fluctuance noted to the distal aspect. Concern for felon. I applied digital block. Using scalpel I made an incision on the medial lateral aspect of the distal finger. Purulent discharge expressed. Wound culture obtained. Using hemostat I dissected the area and inserted a wick Patient tolerated procedure without complication. Patient will be discharged on antibiotics. Return to ED in 3 days for packing removal. I will provide hand referral Diagnosis - felon, encounter for wound recheck Stable and discharged to home with prescription for Clindamycin, Tylneol #3. wound Care instructions given. return to ED in 3 days for packing removal. Followup with Hand. Return to ED if any signs of infection develop (Melvin Fuentes MD) Last Vital Signs Date Time Temp Pulse Resp B/P (MAP) Pulse Ox O2 Delivery O2 Flow Rate FiO2 11/08/17 15:35 98.0 78 20 181/76 98 Room Air 98.1 (Carmen Martin) Status: improved (Melvin Fuentes MD) Disposition: HOME, SELF-CARE Condition: Stable Scripts Acetaminophen With Codeine (T#3) (TYLENOL #3 TAB*) Y Tab 1 TAB ORAL Q8H PRN for For Pain, #20 TAB Prov: Melvin Fuentes MD 11/08/17 Clindamycin Hcl (CLINDAMYCIN HCL) 300 Mg Capsule 300 MG ORAL THREE TIMES A DAY, #21 CAP Prov: Melvin Fuentes MD 11/08/17 Carmen Martin Nov 08, 2017 15:50 Melvin Fuentes MD Nov 08, 2017 18:36
[2017-11-08] MEDS ORDERED: ACETAMINOPHEN-1 EAC1 ORAL (17:07)
[2017-11-08] MEDS ORDERED: CLINDAMYCIN HC300 MG ORAL (17:07)
[2017-11-08 17:31] VITALS: BP 146/70
[2017-11-08 17:32] VITALS: BP 146/70
== END 2017-11-08 17:33 | disposition home or self-care (01) ==
LOC: EMR 16:14
DX: L03.011 Cellulitis of right finger (principal); I10 Essential (primary) hypertension; E11.9 Type 2 diabetes mellitus without complications
CPT/HCPCS: 10060; 87070; 87181; 87205; 99284

== ENCOUNTER 2017-11-11 16:31 | Emergency (ER) | payer MEDICAID ==
[~2017-11-11] VITALS: Ht 177.8 cm; Wt 81.6 kg
[~2017-11-11 16:31] MED LIST changes: +CLINDAMYCIN HC300 MG ORAL
[2017-11-11] MEDS ORDERED: Clindamycin 150mg cap ORAL ONE (16:45)
[2017-11-11 16:48] VITALS: BP 168/73
--- NOTE | 2017-11-11 16:56 | Emergency Room Report ---
History of Present Illness General Chief Complaint: Wound Recheck/Suture Removal Source: Patient Present Illness HPI 52-year-old male presents emergency department for wound packing removal status post incision and drainage 48 hours ago. Patient denies fevers, chills, swollen tender lymph nodes erythema or tenderness. Patient reports 4 out of 10 in severity pain to the right index finger. No new trauma or fall, tetanus is up-to-date. Pt. 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 Allergies: Coded Allergies: No Known Allergies (Unverified , 04/06/17) Patient History Past Medical History: see triage record Past Surgical History: none Pertinent Family History: none Reviewed Nursing Documentation: PMH: Agreed; PSxH: Agreed Nursing Documentation-PMH Past Medical History: No History, Except For Hx Hypertension: Yes Hx Diabetes: Yes - DM II Review of Systems All Other Systems: negative except mentioned in HPI Physical Exam Vital Signs Date Time Temp Pulse Resp B/P (MAP) Pulse Ox O2 Delivery O2 Flow Rate FiO2 11/11/17 16:33 98.0 86 18 168/73 96 Room Air 98.1 Sp02 EP Interpretation: reviewed, normal General Appearance: no apparent distress, alert, GCS 15, non-toxic Head: normocephalic, atraumatic ENT: hearing grossly normal, no angioedema, normal voice Neck: full range of motion Respiratory: lungs clear, normal breath sounds, speaking full sentences Cardiovascular #1: regular rate, rhythm, normal capillary refill Genitourinary: normal inspection Musculoskeletal: back normal, gait/station normal, normal range of motion, tender - TTP distal right index finger, swelling noted, recently incised felon/ finger pad with wound packing noted. no erythema. Neurologic: alert, oriented x3, responsive, motor strength/tone normal, sensory intact, speech normal, grossly normal Psychiatric: judgement/insight normal Skin: normal color, no rash, warm/dry, well hydrated Lymphatic: no adenopathy Medical Decision Making PA Attestation Dr. Henriquez is my supervising physician whom pt. management has been discussed with. Diagnostic Impression: Primary Impression: Change or removal of wound packing ER Course 52-year-old male presents emergency department for wound packing removal status post incision and drainage 48 hours ago. Patient denies fevers, chills, swollen tender lymph nodes erythema or tenderness. Patient reports 4 out of 10 in severity pain to the right index finger. No new trauma or fall, tetanus is up-to-date. Pt. 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 Ddx considered but are not limited to cellulitis, abscess, cystic acne, necrotizing fasciitis, felon, lymphangitis just to name a few. Vital signs: are WNL, pt. is afebrile H&PE are most consistent with healing previously incised Right index felon. some TTP distal right index finger, swelling noted, recently incised felon/ finger pad with wound packing noted. no erythema( Improved from previous exams) ORDERS: none required at this time, the diagnosis is clinical ED INTERVENTIONS: -wound packing removed. -Sterile dressing applied. -Oral abx given -[place] PO Culture and sensitivity report from previous wound culture shows resistance to previously prescribed antibiotics it shows sensitivity to Bactrim Will change antibiotics by mouth patient notified to discontinue previous prescription. Discussed with patient keep wound clean and do not some urge and water. Discussed new antibiotic regimen. Also discussed signs of infection of redness , hot to the touch, swelling or progressive pain that would indicate prompt return to the emergency department. Also encouraged patient that if he feels that he is having worsening of his current symptoms or new symptoms to also return promptly to the emergency department. DISCHARGE: At this time pt. is stable for d/c to home. Will provide printed patient care instructions, and any necessary prescriptions. Care plan and follow up instructions have been discussed with the patient prior to discharge. Last Vital Signs Date Time Temp Pulse Resp B/P (MAP) Pulse Ox O2 Delivery O2 Flow Rate FiO2 11/11/17 16:33 98.0 86 18 168/73 96 Room Air 98.1 Disposition: HOME, SELF-CARE Condition: Stable Scripts Hydrocodone Bit/Acetaminophen 5-325* (NORCO 5-325*) 1 Each Tablet 1 TAB ORAL Q6H PRN for For Pain, #10 TAB 0 Refills Prov: Carmen Martin 11/11/17 Trimethoprim/Sulfamethoxazole 160/800* (BACTRIM DS TABLET*) 1 Each Tablet 1 TAB ORAL TWICE A DAY for 10 Days, #20 TAB Prov: Carmen Martin 11/11/17 Patient Instructions: Wound Check Additional Instructions: Take medications as directed. DISCONTINUE PREVIOUS ANTIBIOTIC. Follow up with a Primary Care Provider in 3-5 days, even if your symptoms have resolved. --Please review list of primary care clinics, if you do not already have a primary care provider Return sooner to ED if new symptoms occur, or current symptoms become worse. - Please note that this Emergency Department Report was dictated using [employer] manager technology software, occasionally this can lead to erroneous entry secondary to interpretation by the dictation equipment. Carmen Martin Nov 11, 2017 16:56
[2017-11-11] MEDS ORDERED: Norco 5mg/325mg tab ORAL ONE (17:00)
[2017-11-11] MEDS ORDERED: Bacitracin Oint UD TOPIC ONE (17:00)
[2017-11-11] MEDS ORDERED: BACTRIM DS TAB1 EAC1 ORAL (17:13)
[2017-11-11] MEDS ORDERED: NORCO 5-325 TA1 EACH ORAL (17:13)
[2017-11-11 17:27] VITALS: BP 168/73
== END 2017-11-11 17:28 | disposition home or self-care (01) ==
LOC: EMR 16:56
DX: Z48.01 Encounter for change or removal of surgical wound dressing (principal); L03.011 Cellulitis of right finger; I10 Essential (primary) hypertension; E11.9 Type 2 diabetes mellitus without complications
CPT/HCPCS: 99284